=== PATIENT | female | born 1965 | race Hispanic/Latino ===

== ENCOUNTER 2018-11-01 20:00 | Emergency (ER) | payer OTHER, SELFPAY ==
[2018-11-01 20:53] LABS: Absolute Lymphocytes (CBC) 2.9 K/uL (0.7-4.9); Basophils % 0.7 % (0-1.3); Hematocrit 43.3 % (36.0-45.0); Lymphocytes % 34.1 % (15.3-44.8); MPV 9.6 fL (7.6-11.3); Monocytes % 5.2 % (3.3-12.3); RBC Red Blood Cell Count 5.08 M/uL (3.86-4.86)
[2018-11-01 21:04] LABS: ALT/SGPT 46 U/L (12-78); AST/SGOT 19 U/L (15-37); Albumin 4.2 g/dL (3.4-5.0); Alkaline Phosphatase 65 U/L (45-117); BUN Blood Urea Nitrogen 18 mg/dL (7-18); Bicarbonate 26 mmol/L (21-32); Bilirubin Direct < 0.1 mg/dL (0-0.2); Bilirubin Total 0.3 mg/dL (0.2-1.0); Glucose Level 185 mg/dL (74-106); Lipase 145 U/L (73-393); Potassium 3.7 mmol/L (3.5-5.1); Protein, Total 8.4 g/dL (6.4-8.2); Sodium Level 140 mmol/L (136-145)
[2018-11-01] MEDS ORDERED: DICYCLOMINE HCL 10 MG CAP ONE (22:49)
[2018-11-01] MEDS ORDERED: NA CHLORIDE 0.9% 1,000 ML ONE (22:50)
[2018-11-01] MEDS ORDERED: FENTANYL CITR 100 MCG/2 ML ONE (22:50)
--- NOTE | 2018-11-02 01:11 | ER ---
Nurse's Notes [facility] Name: Clarice Hall Age: 53 yrs Sex: Female : 1965 Arrival Date: 11/01/2018 Time: 20:05 Bed 25 Private MD: Diagnosis: Upper abdominal pain, unspecified Presentation: 11/01 20:06 Presenting complaint: Patient states: upper abd pain x 1.5 weeks and today began to aa1 radiate to her back. States when she bends over it makes the pain worse and she also had an episode of blurry vision early today but has since resolved. Transition of care: patient was not received from another setting of care. Onset of symptoms was October 22, 2018. Risk Assessment: Do you want to hurt yourself or someone else? Patient reports no desire to harm self or others. Initial Sepsis Screen: Does the patient meet any 2 criteria? No. Patient's initial sepsis screen is negative. Does the patient have a suspected source of infection? No. Patient's initial sepsis screen is negative. Care prior to arrival: None. 20:06 Method Of Arrival: Ambulatory aa1 20:06 Acuity: KASIA 3 aa1 Triage Assessment: 20:08 General: Appears in no apparent distress. comfortable, Behavior is calm, cooperative, aa1 appropriate for age. 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 - Social history:: Smoking status: Patient/guardian denies using tobacco. - Ebola Screening: : Patient denies exposure to infectious person Patient denies travel to an Ebola-affected area in the 21 days before illness onset. Screenin:48 Abuse screen: Denies threats or abuse. Denies injuries from another. Nutritional aj1 screening: No deficits noted. Tuberculosis screening: No symptoms or risk factors identified. Assessment: 20:48 General: Appears in no apparent distress. comfortable, Behavior is calm, cooperative, aj1 appropriate for age. Pain: Complains of pain in epigastric area and left upper quadrant. Pain: Pain radiates to left trapezius and right trapezius. Neuro: Neuro: Level of Consciousness is awake, alert, obeys commands, Oriented to person, place, time, situation. Cardiovascular: Patient's skin is warm and dry. Respiratory: Airway is patent Respiratory effort is even, unlabored, Respiratory pattern is regular, symmetrical. GI: Abdomen is non-distended, Bowel sounds present X 4 quads. Abd is soft X 4 quads Abdomen is tender to palpation in left upper quadrant Reports nausea, Patient currently denies diarrhea, vomiting. : No signs and/or symptoms were reported regarding the genitourinary system. EENT: No signs and/or symptoms were reported regarding the EENT system. Derm: No signs and/or symptoms reported regarding the dermatologic system. Skin is pink, warm \T\ dry. normal. Musculoskeletal: No signs and/or symptoms reported regarding the musculoskeletal system. Circulation, motion, and sensation intact. 21:38 Reassessment: Patient appears in no apparent distress at this time. No changes from aj1 previously documented assessment. Patient and/or family updated on plan of care and expected duration. Pain level reassessed. Patient is alert, oriented x 3, equal unlabored respirations, skin warm/dry/pink. 22:47 Reassessment: Patient appears in no apparent distress at this time. Patient and/or aa1 family updated on plan of care and expected duration. Pain level reassessed. Patient is alert, oriented x 3, equal unlabored respirations, skin warm/dry/pink. Pt taken to u/s and x-ray at this time. 11/02 00:25 Reassessment: Patient appears in no apparent distress at this time. Patient and/or aa1 family updated on plan of care and expected duration. Pain level reassessed. Patient is alert, oriented x 3, equal unlabored respirations, skin warm/dry/pink. Awaiting provider reassessment. 01:38 Reassessment: Patient appears in no apparent distress at this time. Patient is alert, aa1 oriented x 3, equal unlabored respirations, skin warm/dry/pink. Discussed d/c \T\ f/u instructions with pt; denies questions or concerns at this time Patient denies pain at this time. Patient states feeling better. Vital Signs: 11/01 20:08 BP 160 / 88; Pulse 76; Resp 18; Temp 97.9; Pulse Ox 100% on R/A; Weight 68.49 kg (R); aa1 Height 5 ft. 1 in. (154.94 cm); Pain 8/10; 21:40 BP 120 / 67; Pulse 54; Resp 18; Pulse Ox 97% on R/A; aj1 22:45 BP 116 / 70; Pulse 64; Resp 18; Pulse Ox 98% on R/A; aa1 23:30 BP 136 / 76; Pulse 60; Resp 18; Temp 98.1; Pulse Ox 97% on R/A; Pain 4/10; aa1 11/02 00:25 BP 129 / 71; Pulse 59; Resp 16; Pulse Ox 99% on R/A; aa1 01:38 BP 116 / 53; Pulse 64; Resp 16; Temp 98.0; Pulse Ox 99% on R/A; Pain 0/10; aa1 11/01 20:08 Body Mass Index 28.53 (68.49 kg, 154.94 cm) aa1 ED Course: 11/01 20:05 Patient arrived in ED. es 20:07 Triage completed. aa1 20:08 Arm band placed on left wrist. aa1 20:11 Dariel Wilson MD is Attending Physician. kdr 20:12 Faith Powell, ANTONIA is Primary Nurse. aj1 20:48 Patient has correct armband on for positive identification. Bed in low position. Call aj1 light in reach. Side rails up X 1. Pulse ox on. NIBP on. 20:48 No provider procedures requiring assistance completed. Inserted saline lock: 22 gauge aj1 in left forearm, using aseptic technique. Blood collected. 21:48 Yumiko Drew FNP-C is PHCP. snw 22:51 US Abdomen Limited In Process Unspecified. EDMS 22:56 Ultrasound completed. Patient moved to radiology via wheelchair. hr 23:01 Chest Pa And Lat (2 Views) XRAY In Process Unspecified. EDMS 11/02 01:38 IV discontinued, intact, bleeding controlled, No redness/swelling at site. Pressure aa1 dressing applied. Administered Medications: 11/01 22:40 Drug: Bentyl 20 mg Route: PO; aa1 11/02 00:30 Follow up: Response: No adverse reaction; Pain is decreased 11/01 22:40 Drug: fentaNYL (PF) 25 mcg Route: IVP; Site: left forearm; 11/02 00:30 Follow up: Response: No adverse reaction; Pain is decreased 11/01 22:40 Drug: NS 0.9% 1000 ml Route: IV; Rate: 1 bolus; Site: left forearm; 11/02 01:47 Follow up: IV Status: Completed infusion; IV Intake: 1000ml aa Intake: 01:47 IV: 1000ml; Total: 1000ml. aa1 Outcome: 01:09 Discharge ordered by . snkeanu 01:38 Discharged to home ambulatory. aa1 01:38 Condition: good 01:38 Discharge instructions given to patient, Instructed on discharge instructions, follow up and referral plans. medication usage, Demonstrated understanding of instructions, follow-up care, medications, Prescriptions given X 2. 01:46 Patient left the ED. aa1 Signatures: Dispatcher [employer] Faith Magallon RN RN aj1 Karmen Sanchez RN RN aa1 Dariel Wilson MD MD kdr Therrien, Shelly, GRILL PREP COOK-C GRILL PREP COOK-Csnw Kate Huffman Haley hr
--- NOTE | 2018-11-02 01:11 | EDPHYS ---
Physician Documentation [facility] Name: Clarice Hall Age: 53 yrs Sex: Female : 1965 Arrival Date: 11/01/2018 Time: 20:05 Bed 25 Private MD: ED Physician Dariel Wilson HPI: 11/01 23:08 This 53 yrs old Female presents to ER via Ambulatory with complaints of snw Abdominal Pain. 23:08 The patient presents with abdominal pain in the epigastric area, in the upper abdomen. snw Onset: The symptoms/episode began/occurred suddenly, 1.5 week(s) ago, and became persistent. The symptoms do not radiate. Associated signs and symptoms: Pertinent positives: nausea. The symptoms are described as crampy, vague. Severity of pain: At its worst the pain was moderate severe. It is unknown whether or not the patient has had similar symptoms in the past. The patient has not recently seen a physician. 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 - Social history:: Smoking status: Patient/guardian denies using tobacco. - Ebola Screening: : Patient denies exposure to infectious person Patient denies travel to an Ebola-affected area in the 21 days before illness onset. ROS: 23:07 Constitutional: Negative for fever, chills, and weight loss, Eyes: Negative for injury, snw pain, redness, and discharge, ENT: Negative for injury, pain, and discharge, Neck: Negative for injury, pain, and swelling, Cardiovascular: Negative for chest pain, palpitations, and edema, Respiratory: Negative for shortness of breath, cough, wheezing, and pleuritic chest pain, Back: Negative for injury and pain, : Negative for injury, bleeding, discharge, and swelling, MS/Extremity: Negative for injury and deformity, Skin: Negative for injury, rash, and discoloration, Neuro: Negative for headache, weakness, numbness, tingling, and seizure. 23:07 Abdomen/GI: Positive for abdominal pain, nausea, abdominal cramps, abdominal distension, of the epigastric area, right upper quadrant and left upper quadrant. Exam: 23:07 Constitutional: This is a well developed, well nourished patient who is awake, alert, snw and in no acute distress. Head/Face: Normocephalic, atraumatic. Eyes: Pupils equal round and reactive to light, extra-ocular motions intact. Lids and lashes normal. Conjunctiva and sclera are non-icteric and not injected. Cornea within normal limits. Periorbital areas with no swelling, redness, or edema. ENT: Nares patent. No nasal discharge, no septal abnormalities noted. Tympanic membranes are normal and external auditory canals are clear. Oropharynx with no redness, swelling, or masses, exudates, or evidence of obstruction, uvula midline. Mucous membranes moist. Neck: Trachea midline, no thyromegaly or masses palpated, and no cervical lymphadenopathy. Supple, full range of motion without nuchal rigidity, or vertebral point tenderness. No Meningismus. Chest/axilla: Normal chest wall appearance and motion. Nontender with no deformity. No lesions are appreciated. Cardiovascular: Regular rate and rhythm with a normal S1 and S2. No gallops, murmurs, or rubs. Normal PMI, no JVD. No pulse deficits. Respiratory: Lungs have equal breath sounds bilaterally, clear to auscultation and percussion. No rales, rhonchi or wheezes noted. No increased work of breathing, no retractions or nasal flaring. Back: No spinal tenderness. No costovertebral tenderness. Full range of motion. Skin: Warm, dry with normal turgor. Normal color with no rashes, no lesions, and no evidence of cellulitis. MS/ Extremity: Pulses equal, no cyanosis. Neurovascular intact. Full, normal range of motion. Neuro: Awake and alert, GCS 15, oriented to person, place, time, and situation. Cranial nerves II-XII grossly intact. Motor strength 5/5 in all extremities. Sensory grossly intact. Cerebellar exam normal. Normal gait. Psych: Awake, alert, with orientation to person, place and time. Behavior, mood, and affect are within normal limits. 23:07 Abdomen/GI: Inspection: abdomen appears normal, Bowel sounds: normal, Palpation: moderate abdominal tenderness, in the epigastric area and left upper quadrant. Vital Signs: 20:08 BP 160 / 88; Pulse 76; Resp 18; Temp 97.9; Pulse Ox 100% on R/A; Weight 68.49 kg (R); aa1 Height 5 ft. 1 in. (154.94 cm); Pain 8/10; 21:40 BP 120 / 67; Pulse 54; Resp 18; Pulse Ox 97% on R/A; aj1 22:45 BP 116 / 70; Pulse 64; Resp 18; Pulse Ox 98% on R/A; aa1 23:30 BP 136 / 76; Pulse 60; Resp 18; Temp 98.1; Pulse Ox 97% on R/A; Pain 4/10; aa1 11/02 00:25 BP 129 / 71; Pulse 59; Resp 16; Pulse Ox 99% on R/A; aa1 01:38 BP 116 / 53; Pulse 64; Resp 16; Temp 98.0; Pulse Ox 99% on R/A; Pain 0/10; aa1 11/01 20:08 Body Mass Index 28.53 (68.49 kg, 154.94 cm) aa1 MDM: 11/01 21:48 Patient medically screened. snw 11/02 01:11 Data reviewed: vital signs, nurses notes. Data interpreted: Pulse oximetry: on room air snw is 99 %. Interpretation: normal. Counseling: I had a detailed discussion with the patient and/or guardian regarding: the historical points, exam findings, and any diagnostic results supporting the discharge/admit diagnosis, lab results, radiology results, the need for outpatient follow up, to return to the emergency department if symptoms worsen or persist or if there are any questions or concerns that arise at home. Special discussion: Based on the patient's Hx, exam, and Dx evaluation, there is no indication for emergent surgery or inpatient Tx. It is understood by the patient/guardian that if the Sx's persist or worsen they need to return immediately for re-evaluation. Based on the history and exam findings, there is no indication for further emergent testing or inpatient evaluation. I discussed with the patient/guardian the need to see the programs manager for further evaluation of the symptoms. I discussed with the patient/guardian the need to see the primary care provider for further evaluation of the symptoms. 11/01 20:11 Order name: Basic Metabolic Panel; Complete Time: 21:49 kdr 11/01 20:11 Order name: CBC with Diff; Complete Time: 21:49 kdr 11/01 20:11 Order name: Creatinine for Radiology; Complete Time: 21:49 kdr 11/01 20:11 Order name: Hepatic Function; Complete Time: 21:49 kdr 11/01 20:11 Order name: Lipase; Complete Time: 21:49 kdr 11/01 21:50 Order name: US Abdomen Limited snw 11/01 20:11 Order name: IV Saline Lock; Complete Time: 20:42 kdr 11/01 20:11 Order name: Labs collected and sent; Complete Time: 20:42 kdr 11/01 22:06 Order name: Chest Pa And Lat (2 Views) XRAY snw 11/01 23:49 Order name: PO challenge; Complete Time: 00:30 snw Administered Medications: 11/01 22:40 Drug: Bentyl 20 mg Route: PO; aa1 11/02 00:30 Follow up: Response: No adverse reaction; Pain is decreased aa 11/01 22:40 Drug: fentaNYL (PF) 25 mcg Route: IVP; Site: left forearm; aa1 11/02 00:30 Follow up: Response: No adverse reaction; Pain is decreased [facility] 11/01 22:40 Drug: NS 0.9% 1000 ml Route: IV; Rate: 1 bolus; Site: left forearm; aa1 11/02 01:47 Follow up: IV Status: Completed infusion; IV Intake: 1000ml aa Disposition: 07:01 Co-signature as Attending Physician, Dariel Wilson MD I agree with the assessment and [facility] plan of care. Disposition: 11/02/18 01:09 Discharged to Home. Impression: Upper abdominal pain, unspecified. - Condition is Stable. - Discharge Instructions: Abdominal Pain, Adult, Fat and Cholesterol Restricted Diet. - Prescriptions for Bentyl 20 mg Oral Tablet - take 1 tablet by ORAL route every 6 hours As needed; 20 tablet. Zofran 4 mg Oral Tablet - take 1 tablet by ORAL route every 12 hours As needed; 6 tablet. - Work release form, Medication Reconciliation Form, Thank You Letter, Antibiotic Education, Prescription Opioid Use form. - Follow up: Private Physician; When: 1 - 2 days; Reason: Recheck today's complaints, Continuance of care, Re-evaluation by your physician. Follow up: Emergency Department; When: As needed; Reason: Worsening of condition. Signatures: Dispatcher [employer] Karmen Bishop RN RN aa1 Dariel Wilson MD MD kdr Yumiko Drew, ART MUSEUM DOCENT-C ART MUSEUM DOCENT-Csnw Corrections: (The following items were deleted from the chart) 01:46 01:09 11/02/2018 01:09 Discharged to Home. Impression: Upper abdominal pain, aa1 unspecified. Condition is Stable. Forms are Medication Reconciliation Form, Thank You Letter, Antibiotic Education, Prescription Opioid Use. Follow up: Private Physician; When: 1 - 2 days; Reason: Recheck today's complaints, Continuance of care, Re-evaluation by your physician. Follow up: Emergency Department; When: As needed; Reason: Worsening of condition. snw
--- NOTE | 2018-11-02 09:04 | RAD REPORT ---
EXAM DESCRIPTION: US - Abdomen Exam Limited - 11/01/2018 10:51 pm CLINICAL HISTORY: Abdominal pain COMPARISON: None. FINDINGS: No gallstones, sludge or other abnormalities within the gallbladder lumen. There is no wal l thickening or pericholecystic fluid. Gallbladder is partially contracted. No common duct stone or biliary tree dilatation identified. IMPRESSION: No gallbladder or biliary tree abnormality.
--- NOTE | 2018-11-02 09:05 | RAD REPORT ---
EXAM DESCRIPTION: RAD - Chest Pa And Lat (2 Views) - 11/01/2018 11:02 pm CLINICAL HISTORY: Chest pain, upper abdomen pain COMPARISON: None. TECHNIQUE: PA and lateral views of the chest were obtained. FINDINGS: The lungs are clear. Heart size is normal and central vasculature is within normal limit s. No pleural effusion or pneumothorax seen. No acute bony finding noted. No aortic abnormality. IMPRESSION: No acute cardiopulmonary process.
== END 2018-11-02 01:46 | disposition home or self-care (01) ==
LOC: ER 20:00
DX: R10.13 Epigastric pain (principal); I10 Essential (primary) hypertension; E11.9 Type 2 diabetes mellitus without complications; Z79.84 Long term (current) use of oral hypoglycemic drugs
CPT/HCPCS: 36415; 71046; 76705; 80048; 80076; 83690; 85025; 96361; 96374; 99284; J3010; J7030

== ENCOUNTER 2020-06-14 10:29 | Emergency (ER) | payer OTHER, SELFPAY ==
--- OUTSIDE RECORDS SUMMARY | 2020-06-14 10:44 | XMS REPORT | Encounter Summary ---
:1965 Author Care Team Providers Name Role Phone Seun GONCALVES Primary Care Provider [phone] Reason for Visit COVID-19 symptoms Instructions 1. Suspected COVID-19 rapid SARS CoV + SARS CoV 2 Ag, QL IA, respiratory specimen 2. COVID-19 Discussion Note: None recorded.Patient educational handouts: No information available. Plan of Care Reminders Provider Appointments None recorded. Lab Rapid SARS CoV In -Office Order + SARS CoV 2 Ag, QL IA, 06/06/2020 Respiratory Specimen Referral None recorded. Procedures None recorded. Surgeries None recorded. Imaging None recorded. Medications Name Start Date glipizide 10 mg tablet lisinopril 20 mg tablet metformin 1,000 mg tablet Medications Administered None recorded. Vitals Height Weight BMI 61 in 152 lbs 16 oz 28.9 kg/m2 Results Lab Results None recorded. Allergies Code Code System Name Reaction Severity Status Onset NKDA Problems Name Status Onset Date Source Diabetes Mellitus Active 11/04/2018 Hypercholesterolemia Active 11/04/2018 Hypertensive Disorder Active 11/04/2018 Procedures Date Name Performed by Esophagogastroduodenoscopy (Surg) Inform ation not available Upper GI Endoscopy Information not avai lable Vaccine List None recorded. Social History Tobacco Smoking Status Never Smoker Past Encounters Encounter Date Diagnosis Provider 06/06/2020 Suspected COVID-19; Covid-19 JONAS GrijalvaC: [address] [place] [id number], Ph. History of Present Illness COVID-19 Symptoms September 2019 Reported By: Patient Note: This is a telehealth visit using real-time audio-video communication. Patient is located at {{home*|other location}} and I am located at {{clinic*|home|other location}}. The participants are myself, the patient, and {{nurse*|medical assitant}}. Patient's consent is on file in the medical records.<div>
</div><div>Pt c/o cough, dizziness, sore throat, vomiting x 2 days ago. Daughter and granddaughter have both tested positive for COVID, they stayed with her all weekend.& lt;/div><div>
</div><div>Pt reports daughter tested this am. </div><div>pt had grandbaby this weekend.</div><div>symptoms started - 2 days ago. dizzy, vomiting, ear pain. no fever. </div><div>reports myalgia. no headache, reports sore throat. </div><div>OTC - no </div> Review of [facility] General Adul t ROS Reported By: Patient ENMT: Ears: no ear pain. Nose: no nose/sinus problems. Mouth/Throat: throat pain Cardiovascular: Cardiovascular: no chest linsey n Respiratory: Respiratory: no wheezing, no shortness of breath, cough Gastrointestinal: Gastrointestinal: no vomitin g, no diarrhea Musculoskeletal: Musculoskeletal: muscle ache s Neurologic: Neurologic: frequent or elizabeth re headaches Allergic/Immunologic: Allergy/Immunologic: no runn y nose, no sinus pressure Physical Exam COVID-19 Exam Reported By: Patient General Appearance: General Appearance normal ap pearance, no acute distress"
--- OUTSIDE RECORDS SUMMARY | 2020-06-14 10:44 | XMS REPORT | Continuity of Care Document ---
:1965 Author Organization [facility] t Address [address] [place] [address] Care Team Providers Name Role Phone Unavailable Unavailable Unavailable Problems Condition Condition Condition Status Onset Resolution Last Treating Co mments Source Name Details Category Date Date Treatment Clinician Date Diabetes Diabetes Problem Active [place] mellitus Mellitus 11-04 da 00:00: [facility] 00 Group Hyperchole Hyperchole Problem Active [facility] sterolemia sterolemia 11-04 da 00:00: Medical 00 Group Hypertensi Hypertensi Problem Active [facility] ve ve 11-04 da disorder Disorder 00:00: Medica l 00 Group Type 2 Type 2 Problem Active [place] diabetes Diabetes 01-26 da mellitus Mellitus 00:00: [facility] without without 00 al complicati Complicati He alth on on Outreac h Program Hyperlipid Hyperlipid Problem Active [facility] emia emia 918 da 00:00: [facility] Essential Essential Problem Active [facility] hypertensi Hypertensi 918 da on on 00:00: [facility] Obesity Obesity Problem Active [place] [facility] Allergies, Adverse Reactions, Alerts This patient has no known allergies or adverse reactions. Social History Smoking Status Start Date Stop Date Source Never Smoker [facility] Medications Ordered Filled Start Stop Current Ordering Indication Dosage Frequency Signature Comments Components Source Medication Medication Date Date Medication? Clinician (SIG) Name Name atorvastati atorvastati No atorvastat [place] 20 mg n 20 mg in 20 mg da tablet Take tablet Take tablet [facility] 1 tablet at 1 tablet at Take 1 al bedtime for bedtime for tablet at Health elevated elevated bedtime Outr eac cholesterol cholesterol for h elevated Program cholestero l Glucotrol Glucotrol No Glucotrol [place] 10 mg 10 mg 10 mg da tablet Take tablet Take tablet [facility] 1 tablet 1 tablet Take 1 al twice a day twice a day tablet Health with a meal with a meal twice a Outreac for for day with a h diabetes diabetes meal for Pro gram diabetes Jardiance Jardiance No Jardiance [place] 10 mg 10 mg 10 mg da tablet Take tablet Take tablet [facility] 1 tablet 1 tablet Take 1 al every every tablet Health morning for morning for every Outreac diabetes diabetes morning h for Program diabetes lisinopril lisinopril No lisinopril [place] 20 mg 20 mg 20 mg da tablet Take tablet Take tablet [facility] 1 tablet in 1 tablet in Take 1 al the morning the morning tablet in Health for blood for blood the Outre ac pressure pressure morning h and renal and renal for blood Program protection protection pressure and renal protection Macrobid Macrobid No 1capsul Q12H Macrobid [place] 100 mg 100 mg e(s) 100 mg da capsule capsule capsule [facility] Take 1 Take 1 Take 1 al capsule capsule capsule Health every 12 every 12 every 12 Out reac hours by hours by hours by h oral route oral route oral route Program for 7 days. for 7 days. for 7 days. metformin metformin No metformin [place] 1,000 mg 1,000 mg 1,000 mg da tablet Take tablet Take tablet [facility] 1 tablet 1 tablet Take 1 al twice a day twice a day tablet Health for for twice a Outreac diabetes diabetes day for h diabetes Program glipizide glipizide No glipizide [place] 10 mg 10 mg 10 mg da tablet tablet tablet Medical Group lisinopril lisinopril No lisinopril [place] 20 mg 20 mg 20 mg da tablet tablet tablet Medical [facility] metformin metformin No metformin [facility] 1,000 mg 1,000 mg 1,000 mg da tablet tablet tablet [facility] Vital Signs Vital Name Observation Time Observation Value Comments Source Height 2020-06-06 00:00:00 61 [in_i] [facility] BMI (Body Mass 2020-06-06 00:00:00 28.9 kg/m2 [facility]) Group Body Weight 2020-06-06 00:00:00 2448 [oz_av] [facility] BP Diastolic 2019-03-21 00:00:00 85 mm[Hg] [facility] Height 2019-03-21 00:00:00 61 [in_i] [facility] BMI (Body Mass 2019-03-21 00:00:00 27.6 kg/m2 [facility] BP Systolic 2019-03-21 00:00:00 130 mm[Hg] [facility] Body Weight 2019-03-21 00:00:00 146 [lb_av] [facility] BP Diastolic 2019-03-10 00:00:00 96 mm[Hg] [facility] [facility] Height 2019-03-10 00:00:00 61 [in_i] [place] [facility] BMI (Body Mass 2019-03-10 00:00:00 28.3 kg/m2 [facility] BP Systolic 2019-03-10 00:00:00 126 mm[Hg] [place] [facility] Body Weight 2019-03-10 00:00:00 149.6 [lb_av] [place] BP Diastolic 2019-01-20 00:00:00 74 mm[Hg] [facility] Height 2019-01-20 00:00:00 61 [in_i] [facility] BMI (Body Mass 2019-01-20 00:00:00 28.9 kg/m2 [facility] BP Systolic 2019-01-20 00:00:00 136 mm[Hg] [facility] Body Weight 2019-01-20 00:00:00 153 [lb_av] [facility] BP Diastolic 2018-12-16 00:00:00 76 mm[Hg] [facility] Height 2018-12-16 00:00:00 61 [in_i] [facility] BMI (Body Mass 2018-12-16 00:00:00 28.9 kg/m2 [facility] BP Systolic 2018-12-16 00:00:00 138 mm[Hg] [facility] Body Weight 2018-12-16 00:00:00 153 [facility] BP Diastolic 2018-11-04 00:00:00 83 mm[Hg] [facility] Height 2018-11-04 00:00:00 61 [in_i] [facility] BMI (Body Mass 2018-11-04 00:00:00 28.9 kg/m2 [facility] Medical Index) Group BP Systolic 2018-11-04 00:00:00 144 mm[Hg] [facility] Body Weight 2018-11-04 00:00:00 153 [lb_av] [facility] Procedures Procedure Date / Time Performing Source Performed Clinician MAMMO, screening, digital, 2019-03-21 [place] bilateral 00:00:00 [facility] NM, hepatobiliary scan, w/ CCK 2018-11-04 [facility] [place] 00:00:00 [facility] Tubal Ligation [facility] Upper GI Endoscopy [facility] Esophagogastroduodenoscopy (Surg) [facility] Plan of Care Planned Activity Planned Date Details Comments Source Diagnostic Test 2020-06-06 rapid SARS CoV + SARS [facility] Pending 00:00:00 CoV 2 Ag, QL IA, Group respiratory specimen [code = rapid SARS CoV + SARS CoV 2 Ag, QL IA, respiratory specimen] Diagnostic Test 2019-03-21 urinalysis, dipstick [facility] mode Pending 00:00:00 [code = urinalysis, [facility] dipstick] [facility] Diagnostic Test 2019-03-21 CMP, serum or plasma [facility] Pending 00:00:00 [code = CMP, serum or [facility] plasma] [facility] Diagnostic Test 2019-03-21 CBC w/ auto diff [place] [facility] Pending 00:00:00 [code = CBC w/ auto [facility] diff] [facility] Diagnostic Test 2019-03-21 TSH + free T4, serum [facility] Pending 00:00:00 [code = TSH + free [facility] T4, serum] [facility] Diagnostic Test 2019-03-21 lipid panel, serum [facility] Pending 00:00:00 [code = lipid panel, [facility] serum] [facility] Diagnostic Test 2019-03-21 pap, IG + CT/NG/TV [facility] Pending 00:00:00 [code = pap, IG + [facility] CT/NG/TV] [facility] m Diagnostic Test 2019-03-21 HIV 1+2 AB + HIV 1 [facility] Pending 00:00:00 p24 Ag, qualitative [facility] immunoassay, serum [facility] [code = HIV 1+2 AB + HIV 1 p24 Ag, qualitative immunoassay, serum] Diagnostic Test 2019-03-21 RPR (rapid plasma [place] Pending 00:00:00 reagin), serum [code [facility] = RPR (rapid plasma [facility] reagin), serum] Diagnostic Test 2019-03-21 HBsAg (hepatitis B [facility] Pending 00:00:00 surface Ag), EIA, [facility] serum [code = HBsAg [facility] (hepatitis B surface Ag), EIA, serum] Diagnostic Test 2019-03-21 culture, urine [code [facility] Pending 00:00:00 = culture, urine] [facility] Encounters Start End Encounter Admission Attending Care Care Encounter Source Date/Time Date/Time Type Type Clinicians Facility Department ID 2020-06-06 2020-06-06 Maria Teresa [facility] [place] - [id number] [facility] 00:00:00 00:00:00 Discovery singh Trevizo PA-C: [address] [place], [place] [address]a [facility] [address] [place] [address] , Ph. 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 2019-03-10 2019-03-10 [place] - [id number] 1 [place] 00:00:00 00:00:00 IVANNA Mitchell: Alberto joseph 1700 [facility] [place], [facility] 3, [address] [address] Progr am , Ph. 2019-01-20 2019-01-20 Jared [facility] [place] - [id number] M [facility] 00:00:00 00:00:00 Sebastian Lovell MD: [facility] [address], [place] [address] , Ph. [phone] 2018-12-16 2018-12-16 Jared [facility] [place] - [id number] M [facility] 00:00:00 00:00:00 Sebastian Lovell MD: [facility] [address], [place] [address] , Ph. [phone] 2018-11-04 2018-11-04 Gustavo [facility] [place] - [id number] M [facility] 00:00:00 00:00:00 Kevin DO: Discovery olivier joseph [address] [place] [address] - [address], [facility] [address] , Ph. [phone] Results Test Description Test Time Test Comments Results Result Comments Source Surgical pathology study 2019-01-14 07:50:00 Test Item Value Reference Range Interpretation Comme nts Surgical pathology study (test code = 37735-9) see separate patholo gy report. [facility]
[2020-06-14] MEDS ORDERED: NA CHLORIDE 0.9% 1,000 ML ONE (12:48)
[2020-06-14] MEDS ORDERED: METHYLPREDNISOLONE 125 MG INJ ONE (12:48)
[2020-06-14 13:02] LABS: Potassium 4.1 mmol/L (3.5-5.1)
[2020-06-14 13:11] LABS: Absolute Lymphocytes (CBC) 1.4 K/uL (0.7-4.9); Basophils % 0.3 % (0-1.3); Hematocrit 41.6 % (36.0-45.0); Lymphocytes % 29.2 % (15.3-44.8); RBC Red Blood Cell Count 5.13 M/uL (3.86-4.86)
--- NOTE | 2020-06-14 13:20 | RAD REPORT ---
EXAM DESCRIPTION: RAD - Chest Single View - 06/14/2020 1:04 pm CLINICAL HISTORY: covid. sob Chest pain. COMPARISON: Chest Pa And Lat (2 Views) dated 11/01/2018 FINDINGS: Portable technique limits examination quality. Subtle interstitial opacities are present in the right mid lung and left upper lobe compatible with v iral infection/ bronchitis. The heart is normal in size. No displaced fractures.
[2020-06-14] MEDS ORDERED: INSULIN -REGULAR HUMAN 50 UNIT/0.5 ML ML ONE ×2 (14:08→14:25)
--- NOTE | 2020-06-14 14:09 | ER ---
Nurse's Notes [facility] Name: Clarice Hall Age: 54 yrs Sex: Female : 1965 Arrival Date: 06/14/2020 Time: 10:31 Bed 26 Private MD: Diagnosis: SARS-associated coronavirus as the cause of diseases classified elsewhere;Viral pneumonia, unspecified Presentation: 06/14 10:47 Chief complaint: Patient states: Covid positive last week in [place]. N/V/D for 2 sv days. Feels dizzy and weak. Still has cough, no known high fever. Coronavirus screen: Client denies travel out of the [place] in the last 14 days. congestion, cough unrelated to allergies, diarrhea, fatigue, nausea, vomiting. Client presents with at least one sign or symptom that may indicate coronavirus-19. Standard/surgical mask placed on the client. Client reports previous positive COVID test result. Ebola Screen: Patient denies travel to an Ebola-affected area in the 21 days before illness onset. Initial Sepsis Screen: Does the patient meet any 2 criteria? HR > 90 bpm. No. Patient's initial sepsis screen is negative. Does the patient have a suspected source of infection? Yes: Productive cough/pneumonia. Risk Assessment: Do you want to hurt yourself or someone else? Patient reports no desire to harm self or others. Onset of symptoms was June 01, 2020. 10:47 Method Of Arrival: Ambulatory sv 10:47 Acuity: KASIA 3 sv Historical: - Allergies: 10:47 No Known Allergies; sv - PMHx: 10:47 Diabetes - NIDDM; Hypertension; sv - PSHx: 10:47 ; sv - Immunization history:: Flu vaccine is not up to date. - Social history:: Smoking status: Patient denies any tobacco usage or history of. Screenin:15 Abuse screen: Denies threats or abuse. Denies injuries from another. Nutritional ca1 screening: No deficits noted. Tuberculosis screening: No symptoms or risk factors identified. Fall Risk None identified. Assessment: 12:15 General: Appears in no apparent distress. comfortable, Behavior is calm, cooperative, ca1 appropriate for age. Pain: Denies pain. Neuro: Level of Consciousness is awake, alert, obeys commands, Oriented to person, place, time, situation. Neuro: Reports dizziness. Cardiovascular: Heart tones S1 S2 present Capillary refill < 3 seconds Patient's skin is warm and dry. Respiratory: Reports cough that is since a week ago Airway is patent Respiratory effort is even, unlabored, Respiratory pattern is regular, symmetrical, Breath sounds are clear bilaterally. GI: Abdomen is round non-distended, Bowel sounds present X 4 quads. Abd is soft and non tender X 4 quads. Reports diarrhea, nausea, vomiting. : No signs and/or symptoms were reported regarding the genitourinary system. EENT: No signs and/or symptoms were reported regarding the EENT system. Derm: Skin is intact, is healthy with good turgor, Skin is pink, warm \T\ dry. Musculoskeletal: Circulation, motion, and sensation intact. Capillary refill < 3 seconds. 13:14 Reassessment: Patient appears in no apparent distress at this time. Patient and/or ca1 family updated on plan of care and expected duration. Pain level reassessed. Patient is alert, oriented x 3, equal unlabored respirations, skin warm/dry/pink. 13:53 Reassessment: Patient appears in no apparent distress at this time. Patient is alert, ca1 oriented x 3, equal unlabored respirations, skin warm/dry/pink. BGL checked at 278. Notified provider. VO to give just IV insulin for now. 14:15 Reassessment: VO to go ahead and give Insulin SubQ. ca1 14:33 Reassessment: Patient appears in no apparent distress at this time. Patient is alert, ca1 oriented x 3, equal unlabored respirations, skin warm/dry/pink. Vital Signs: 10:47 BP 158 / 98; Pulse 94; Resp 18; Temp 99.1; Pulse Ox 95% on R/A; Weight 66.22 kg; Height sv 5 ft. 1 in. (154.94 cm); Pain 7/10; 12:15 BP 136 / 81; Pulse 81; Resp 16 S; Pulse Ox 96% on R/A; ca1 13:14 BP 134 / 80; Pulse 75; Resp 16 S; Pulse Ox 97% on R/A; ca1 13:53 BP 129 / 75; Pulse 80; Resp 16 S; Pulse Ox 95% on R/A; ca1 10:47 Body Mass Index 27.59 (66.22 kg, 154.94 cm) sv ED Course: 10:31 Patient arrived in ED. as 10:46 Arm band placed on. sv 10:49 Triage completed. sv 12:03 Shravan Robbins PA is PHCP. jr8 12:03 Dariel Wilson MD is Attending Physician. jr8 12:14 Sigrid Garcia, ANTONIA is Primary Nurse. ca1 12:15 Patient has correct armband on for positive identification. Placed in gown. Bed in low ca1 position. Call light in reach. Side rails up X2. Pulse ox on. NIBP on. Warm blanket given. 12:38 Initial lab(s) drawn, by me, sent to lab. Inserted saline lock: 20 gauge in right hand, jp3 using aseptic technique. Blood collected. Patient maintains SpO2 saturation greater than 95% on room air. 13:03 XRAY Chest (1 view) In Process Unspecified. EDMS 14:18 No provider procedures requiring assistance completed. ca1 14:34 IV discontinued, intact, bleeding controlled, No redness/swelling at site. Pressure ca1 dressing applied. Administered Medications: 12:43 Drug: NS 0.9% 1000 ml Route: IV; Rate: 1000 ml; Site: right hand; vg1 13:50 Follow up: Response: No adverse reaction; IV Status: Completed infusion; IV Intake: ca1 1000ml 12:43 Drug: SOLU-Medrol 125 mg Route: IVP; Site: right hand; vg1 13:30 Follow up: Response: No adverse reaction; Marked relief of symptoms ca1 13:54 Drug: Insulin Regular Human 5 units {Co-Signature: ll1 (Mariel Ramos RN).} Route: IVP; ca1 Site: right hand; 14:17 Follow up: Response: No adverse reaction ca1 14:34 Follow up: Response: No adverse reaction; Blood sugar is lowered ca1 14:15 Drug: Insulin Regular Human 5 units {Co-Signature: ll1 (Mariel Ramos RN).} Route: ca1 Sub-Q; Site: left upper abdomen; 14:17 Follow up: Response: No adverse reaction ca1 14:34 Follow up: Response: Blood sugar is lowered ca1 Intake: 13:50 IV: 1000ml; Total: 1000ml. ca1 Outcome: 14:09 Discharge ordered by . jr8 14:34 Discharged to home ambulatory. ca1 14:34 Condition: stable 14:34 Discharge instructions given to patient, Instructed on discharge instructions, follow up and referral plans. medication usage, Demonstrated understanding of instructions, follow-up care, medications, Prescriptions given X 3. 14:34 Patient left the ED. ca1 Signatures: Dispatcher [employer] EDJudy Chow, RN RN Martha Massey Josh, PA PA jr8 Bear Preston jp3 Sigrid Garcia RN RN ca1 Robyn Munoz RN RN vg1 Mariel Ramos RN ll1 Corrections: (The following items were deleted from the chart) 12:20 12:15 BP 155 / 90; Pulse 81bpm; Resp 16bpm; Spontaneous; Pulse Ox 96% RA; ca1 ca1
--- NOTE | 2020-06-14 14:09 | EDPHYS ---
Physician Documentation [facility] Name: Clarice Hall Age: 54 yrs Sex: Female : 1965 Arrival Date: 06/14/2020 Time: 10:31 Bed 26 Private MD: ED Physician Dariel Wilson HPI: 06/14 12:32 This 54 yrs old Female presents to ER via Ambulatory with complaints of jr8 covid+, feels worse. 12:32 Patient stated that she was diagnosed with covid about 10 days ago. Has worsening of jr8 cough and now three days of n/v/d . Severity of symptoms: At their worst the symptoms were moderate in the emergency department the symptoms are unchanged. The patient has not experienced similar symptoms in the past. The patient has not recently seen a physician. Historical: - Allergies: 10:47 No Known Allergies; sv - PMHx: 10:47 Diabetes - NIDDM; Hypertension; sv - PSHx: 10:47 ; sv - Immunization history:: Flu vaccine is not up to date. - Social history:: Smoking status: Patient denies any tobacco usage or history of. ROS: 12:32 Eyes: Negative for injury, pain, redness, and discharge, ENT: Negative for injury, jr8 pain, and discharge, Neck: Negative for injury, pain, and swelling, Cardiovascular: Negative for chest pain, palpitations, and edema, Back: Negative for injury and pain, MS/Extremity: Negative for injury and deformity, Skin: Negative for injury, rash, and discoloration, Neuro: Negative for headache, weakness, numbness, tingling, and seizure. 12:32 Respiratory: Positive for cough, shortness of breath. 12:32 Abdomen/GI: Positive for nausea, vomiting, and diarrhea, Negative for abdominal pain, hematemesis, black/tarry stool, rectal pain, rectal bleeding, bowel incontinence, flatulence. Exam: 12:32 Eyes: Pupils equal round and reactive to light, extra-ocular motions intact. Lids and jr8 lashes normal. Conjunctiva and sclera are non-icteric and not injected. Cornea within normal limits. Periorbital areas with no swelling, redness, or edema. ENT: Nares patent. No nasal discharge, no septal abnormalities noted. Tympanic membranes are normal and external auditory canals are clear. Oropharynx with no redness, swelling, or masses, exudates, or evidence of obstruction, uvula midline. Mucous membranes moist. Neck: Trachea midline, no thyromegaly or masses palpated, and no cervical lymphadenopathy. Supple, full range of motion without nuchal rigidity, or vertebral point tenderness. No Meningismus. Cardiovascular: Regular rate and rhythm with a normal S1 and S2. No gallops, murmurs, or rubs. Normal PMI, no JVD. No pulse deficits. Respiratory: Lungs have equal breath sounds bilaterally, clear to auscultation and percussion. No rales, rhonchi or wheezes noted. No increased work of breathing, no retractions or nasal flaring. Abdomen/GI: Soft, non-tender, with normal bowel sounds. No distension or tympany. No guarding or rebound. No evidence of tenderness throughout. Back: No spinal tenderness. No costovertebral tenderness. Full range of motion. Skin: Warm, dry with normal turgor. Normal color with no rashes, no lesions, and no evidence of cellulitis. MS/ Extremity: Pulses equal, no cyanosis. Neurovascular intact. Full, normal range of motion. Neuro: Awake and alert, GCS 15, oriented to person, place, time, and situation. Cranial nerves II-XII grossly intact. Motor strength 5/5 in all extremities. Sensory grossly intact. Cerebellar exam normal. Normal gait. Vital Signs: 10:47 BP 158 / 98; Pulse 94; Resp 18; Temp 99.1; Pulse Ox 95% on R/A; Weight 66.22 kg; Height sv 5 ft. 1 in. (154.94 cm); Pain 7/10; 12:15 BP 136 / 81; Pulse 81; Resp 16 S; Pulse Ox 96% on R/A; ca1 13:14 BP 134 / 80; Pulse 75; Resp 16 S; Pulse Ox 97% on R/A; ca1 13:53 BP 129 / 75; Pulse 80; Resp 16 S; Pulse Ox 95% on R/A; ca1 10:47 Body Mass Index 27.59 (66.22 kg, 154.94 cm) sv MDM: 12:03 Patient medically screened. jr8 13:33 Data reviewed: vital signs, nurses notes, lab test result(s), radiologic studies, plain jr8 films. Data interpreted: Pulse oximetry: on room air is 97 %. Interpretation: normal. Counseling: I had a detailed discussion with the patient and/or guardian regarding: the historical points, exam findings, and any diagnostic results supporting the discharge/admit diagnosis, lab results, radiology results, the need for outpatient follow up, a family practitioner, to return to the emergency department if symptoms worsen or persist or if there are any questions or concerns that arise at home. 14:07 ED course: Discussed with patient that her glucose is still high for being on 1000mg jr8 BID metformin. Recommend pcp f/u for addition of another diabetic medicine on top of her metformin. Will still need to be put on steroids and will also start on ivermectin . 06/14 12:27 Order name: CBC with Diff; Complete Time: 13:19 jr8 06/14 12:27 Order name: Basic Metabolic Panel; Complete Time: 13:19 jr8 06/14 12:27 Order name: XRAY Chest (1 view); Complete Time: 13:23 jr8 06/14 13:59 Order name: Glucose, Ancillary Testing; Complete Time: 14:06 EDMS 06/14 12:27 Order name: IV; Complete Time: 12:42 jr8 Administered Medications: 12:43 Drug: NS 0.9% 1000 ml Route: IV; Rate: 1000 ml; Site: right hand; vg1 13:50 Follow up: Response: No adverse reaction; IV Status: Completed infusion; IV Intake: ca1 1000ml 12:43 Drug: SOLU-Medrol 125 mg Route: IVP; Site: right hand; vg1 13:30 Follow up: Response: No adverse reaction; Marked relief of symptoms ca1 13:54 Drug: Insulin Regular Human 5 units {Co-Signature: ll1 (Mariel Ramos RN).} Route: IVP; ca1 Site: right hand; 14:17 Follow up: Response: No adverse reaction ca1 14:34 Follow up: Response: No adverse reaction; Blood sugar is lowered ca1 14:15 Drug: Insulin Regular Human 5 units {Co-Signature: ll1 (Mariel Ramos RN).} Route: ca1 Sub-Q; Site: left upper abdomen; 14:17 Follow up: Response: No adverse reaction ca1 14:34 Follow up: Response: Blood sugar is lowered ca1 Disposition: 06/15 06:04 Co-signature as Attending Physician, Dariel Wilson MD I agree with the assessment and kdr plan of care. Disposition: 06/14/20 14:09 Discharged to Home. Impression: SARS-associated coronavirus as the cause of diseases classified elsewhere, Viral pneumonia, unspecified. - Condition is Stable. - Discharge Instructions: COVID-19. - Prescriptions for ivermectin 3 mg Oral tablet - take 4 tablet by ORAL route Day 1 then 4 tablets again on day 3; 8 tablet. Tessalon Perles 100 mg Oral Capsule - take 1 capsule by ORAL route every 8 hours As needed; 15 capsule. Prednisone 20 mg Oral Tablet - take 1 tablet by ORAL route once daily for 10 days; 10 tablet. - Medication Reconciliation Form, Thank You Letter, Antibiotic Education, Prescription Opioid Use form. - Follow up: Private Physician; When: 2 - 3 days; Reason: Recheck today's complaints, Continuance of care, Re-evaluation by your physician. - Problem is new. - Symptoms have improved. Signatures: Dispatcher [employer] EDJudy Chow, RN RN Dariel Batista MD MD [facility] Shravan Robbins PA PA jr8 Sigrid Garcia, RN RN ca1 Robyn Munoz RN RN vg1 Mariel Ramos RN ll1 Corrections: (The following items were deleted from the chart) 06/14 14:34 14:09 06/14/2020 14:09 Discharged to Home. Impression: SARS-associated coronavirus as ca1 the cause of diseases classified elsewhere; Viral pneumonia, unspecified. Condition is Stable. Forms are Medication Reconciliation Form, Thank You Letter, Antibiotic Education, Prescription Opioid Use. Follow up: Private Physician; When: 2 - 3 days; Reason: Recheck today's complaints, Continuance of care, Re-evaluation by your physician. Problem is new. Symptoms have improved. jr8
[2020-06-14 14:39] VITALS: TEMP 99.1
[2020-06-14 14:43] VITALS: BP 129/75; O2SAT 95
== END 2020-06-14 14:34 | disposition home or self-care (01) ==
LOC: ER 10:29
DX: U07.1 COVID-19 (principal); J12.9 Viral pneumonia, unspecified; I10 Essential (primary) hypertension
CPT/HCPCS: 36415; 71045; 80048; 82947; 85025; 96361; 96372; 96374; 96375; 99284; J2930; J7030

== ENCOUNTER 2020-06-18 22:52 | Emergency (ER) | payer OTHER, SELFPAY ==
[2020-06-18 23:56] LABS: Absolute Lymphocytes (CBC) 2.3 K/uL (0.7-4.9); Basophils % 0.3 % (0-1.3); Hematocrit 44.4 % (36.0-45.0); Lymphocytes % 28.7 % (15.3-44.8); MPV 9.3 fL (7.6-11.3); RBC Red Blood Cell Count 5.46 M/uL (3.86-4.86)
[2020-06-19 00:05] LABS: ALT/SGPT 52 U/L (12-78); AST/SGOT 21 U/L (15-37); Albumin 3.5 g/dL (3.4-5.0); Alkaline Phosphatase 64 U/L (45-117); BUN Blood Urea Nitrogen 18 mg/dL (7-18); Bicarbonate 30 mmol/L (21-32); Bilirubin Direct < 0.1 mg/dL (0-0.2); Bilirubin Total 0.3 mg/dL (0.2-1.0); Glucose Level 192 mg/dL (74-106); Lipase 534 U/L (73-393); Potassium 4.1 mmol/L (3.5-5.1); Protein, Total 7.7 g/dL (6.4-8.2); Sodium Level 139 mmol/L (136-145)
[2020-06-19] MEDS ORDERED: NA CHLORIDE 0.9% 1,000 ML ONE (00:06)
--- NOTE | 2020-06-19 00:17 | ER ---
Nurse's Notes [facility] Name: Clarice Hall Age: 54 yrs Sex: Female : 1965 Arrival Date: 06/18/2020 Time: 22:53 Bed 15 Private MD: Diagnosis: Hyperglycemia, unspecified Presentation: 06/18 23:22 Chief complaint: Patient states: My blood sugar this morning was reading 400's, I have sg been on steroids for the viral infection and I talked with my doctor this morning and she couldn't tell me yes or no to take the steroids or not so I just didn't take them because I didn't want my blood sugar to go up higher than that. I have had some dizziness as well, no other symptoms reported for triage at this time. Coronavirus screen: Client denies travel out of the [place] in the last 14 days. Client presents with at least one sign or symptom that may indicate coronavirus-19. Standard/surgical mask placed on the client. Provider contacted for isolation considerations. Client reports previous positive COVID test result. Ebola Screen: Patient negative for fever greater than or equal to 101.5 degrees Fahrenheit, and additional compatible Ebola Virus Disease symptoms Patient denies exposure to infectious person. Patient denies travel to an Ebola-affected area in the 21 days before illness onset. No symptoms or risks identified at this time. Initial Sepsis Screen: Does the patient meet any 2 criteria? No. Patient's initial sepsis screen is negative. Does the patient have a suspected source of infection? No. Patient's initial sepsis screen is negative. Risk Assessment: Do you want to hurt yourself or someone else? Patient reports no desire to harm self or others. Onset of symptoms was June 18, 2020. Care prior to arrival: None. Transition of care: patient was not received from another setting of care. 23:22 Acuity: KASIA 3 sg 23:22 Method Of Arrival: Ambulatory sg Historical: - Allergies: 23:26 No Known Allergies; sg - PMHx: 23:26 Diabetes - NIDDM; Hypertension; sg - PSHx: 23:26 ; sg - Immunization history:: Adult Immunizations up to date. - Social history:: Smoking status: Patient denies any tobacco usage or history of. Screenin:30 Abuse screen: Denies threats or abuse. Nutritional screening: No deficits noted. jb4 Tuberculosis screening: No symptoms or risk factors identified. Fall Risk None identified. Assessment: 23:30 General: Appears in no apparent distress. comfortable, Behavior is calm, cooperative, jb4 appropriate for age. Pain: Denies pain. Neuro: Level of Consciousness is awake, alert, obeys commands, Oriented to person, place, time, situation. Cardiovascular: Patient's skin is warm and dry. Respiratory: Airway is patent Respiratory effort is even, unlabored, Respiratory pattern is regular, symmetrical. GI: No signs and/or symptoms were reported involving the gastrointestinal system. : No signs and/or symptoms were reported regarding the genitourinary system. EENT: No signs and/or symptoms were reported regarding the EENT system. Derm: Skin is intact, Skin is pink, warm \T\ dry. Musculoskeletal: Circulation, motion, and sensation intact. Range of motion: intact in all extremities. 06/19 00:56 Reassessment: Patient appears in no apparent distress at this time. Patient and/or jb4 family updated on plan of care and expected duration. Pain level reassessed. Patient is alert, oriented x 3, equal unlabored respirations, skin warm/dry/pink. Pt verbalized understanding of d/c and follow up instructions. Denies questions or concerns. Ambulated out of ED with steady gait. Vital Signs: 06/18 23:22 BP 138 / 78; Pulse 76; Resp 16; Temp 97.4(TE); Pulse Ox 99% on R/A; sg 06/19 00:00 BP 114 / 68; Pulse 72; Resp 16; Pulse Ox 97% on R/A; jb4 ED Course: 06/18 22:53 Patient arrived in ED. cl3 23:17 Shantanu Benz PA is PHCP. jmm 23:17 Yomi García MD is Attending Physician. jmm 23:22 Arm band placed on. sg 23:25 Triage completed. sg 23:30 Initial lab(s) drawn, by me, sent to lab. Inserted saline lock: 20 gauge in right jp3 antecubital area, using aseptic technique. Blood collected. Patient maintains SpO2 saturation greater than 95% on room air. 23:34 Bed in low position. Call light in reach. Side rails up X 1. Verbal reassurance given. jp3 Pulse ox on. NIBP on. 23:45 Ever Trejo, RN is Primary Nurse. jb4 06/19 00:56 No provider procedures requiring assistance completed. IV discontinued, intact, jb4 bleeding controlled, No redness/swelling at site. Pressure dressing applied. Administered Medications: 06/18 23:55 Drug: NS 0.9% 1000 ml Route: IV; Rate: 1 bolus; Site: right antecubital; jb4 06/19 00:57 Follow up: Response: No adverse reaction; IV Status: Order to discontinue infusion; IV jb4 Intake: 800ml Intake: 00:57 IV: 800ml; Total: 800ml. jb4 Outcome: 00:16 Discharge ordered by . sandeep 00:56 Discharged to home ambulatory. jb4 00:56 Condition: stable 00:56 Discharge instructions given to patient, Instructed on discharge instructions, follow up and referral plans. Demonstrated understanding of instructions, follow-up care. 00:57 Patient left the ED. jb4 Signatures: Michel Rhodes RN Shantanu Maldonado PA PA jmm Bryson, James, RN RN jb4 Bear Preston jp3 Ryan Ramos cl3
--- NOTE | 2020-06-19 00:17 | EDPHYS ---
Physician Documentation [facility] Name: Clarice Hall Age: 54 yrs Sex: Female : 1965 Arrival Date: 06/18/2020 Time: 22:53 Bed 15 Private MD: ED Physician Yomi García HPI: 06/18 23:44 This 54 yrs old Female presents to ER via Ambulatory with complaints of High jmm Blood Sugar, Covid+, Dizziness. 23:44 The patient or guardian reports hyperglycemia. Onset: The symptoms/episode jmm began/occurred this morning. Associated signs and symptoms: Pertinent negatives: vomiting. This is a 54 year old female with a history of DM, HTN that presents to the ED with concerns for elevated BGL since being diagnosed with covid. Patient does take regular insulin at home. Patient is taking steroids as well. Advised to D/C by pcp. Patient is also taking ivermectin. Patient denies vomiting, abdominal pain, denies shortness of breath but still has a cough. . Historical: - Allergies: 23:26 No Known Allergies; sg - PMHx: 23:26 Diabetes - NIDDM; Hypertension; sg - PSHx: 23:26 ; sg - Immunization history:: Adult Immunizations up to date. - Social history:: Smoking status: Patient denies any tobacco usage or history of. ROS: 23:44 Cardiovascular: Negative for chest pain, palpitations, and edema. jmm 23:44 Constitutional: Positive for body aches, chills. 23:44 Respiratory: Positive for cough. 23:44 Abdomen/GI: Negative for vomiting. 23:44 All other systems are negative. Exam: 23:44 Constitutional: This is a well developed, well nourished patient who is awake, alert, jmm and in no acute distress. Head/Face: atraumatic. Eyes: EOMI, no conjunctival erythema appreciated ENT: Moist Mucus Membranes Neck: Trachea midline, Supple Chest/axilla: Normal chest wall appearance and motion. Cardiovascular: Regular rate and rhythm. No edema appreciated Respiratory: Normal respirations, no respiratory distress appreciated Abdomen/GI: Non distended, soft Back: Normal ROM Skin: General appearance color normal MS/ Extremity: Moves all extremities, no obvious deformities appreciated, no edema noted to the lower extremities Neuro: Awake and alert, normal gait Psych: Behavior is normal, Mood is normal, Patient is cooperative and pleasant Vital Signs: 23:22 BP 138 / 78; Pulse 76; Resp 16; Temp 97.4(TE); Pulse Ox 99% on R/A; sg 06/19 00:00 BP 114 / 68; Pulse 72; Resp 16; Pulse Ox 97% on R/A; jb4 MDM: 06/18 23:33 Patient medically screened. [facility] 06/19 00:15 Data reviewed: vital signs, nurses notes. Counseling: I had a detailed discussion with [facility] the patient and/or guardian regarding: the historical points, exam findings, and any diagnostic results supporting the discharge/admit diagnosis, lab results, the need for outpatient follow up, to return to the emergency department if symptoms worsen or persist or if there are any questions or concerns that arise at home. ED course: BMP WNL, patient is advised to increased fluids. Discontinue steroids. Given strict return precautions. Patient understood and agrees with the plan of care. . 06/18 23:18 Order name: Basic Metabolic Panel; Complete Time: 00:07 [facility] 06/18 23:18 Order name: CBC with Diff; Complete Time: 00:05 [facility] 06/18 23:18 Order name: Hepatic Function; Complete Time: 00:07 [facility] 06/18 23:18 Order name: Lipase; Complete Time: 00:07 [facility] 06/18 23:18 Order name: Ketone, Serum; Complete Time: 00:07 [facility] 06/18 23:43 Order name: Glucose, Ancillary Testing; Complete Time: 23:46 [facility] 06/18 23:18 Order name: IV Saline Lock; Complete Time: 23:35 [facility] 06/18 23:18 Order name: Labs collected and sent; Complete Time: 23:35 [facility] Administered Medications: 06/18 23:55 Drug: NS 0.9% 1000 ml Route: IV; Rate: 1 bolus; Site: right antecubital; jb4 06/19 00:57 Follow up: Response: No adverse reaction; IV Status: Order to discontinue infusion; IV jb4 Intake: 800ml Disposition: 06/19/20 00:16 Discharged to Home. Impression: Hyperglycemia, unspecified. - Condition is Stable. - Discharge Instructions: Hyperglycemia. - Medication Reconciliation Form, Thank You Letter, Antibiotic Education, Prescription Opioid Use form. - Follow up: Private Physician; When: 2 - 3 days; Reason: Recheck today's complaints, Continuance of care, Re-evaluation by your physician. Addendum: 06/20/2020 06:58 Co-signature as Attending Physician, Yomi García MD. m a2 Signatures: Dispatcher [employer] EDMichel Holloway, RN RN Shantanu Pinto PA PA jmm Bryson, James, RN RN jb4 Yomi García MD MD ma2 Corrections: (The following items were deleted from the chart) 06/19 00:57 00:16 06/19/2020 00:16 Discharged to Home. Impression: Hyperglycemia, unspecified. jb4 Condition is Stable. Forms are Medication Reconciliation Form, Thank You Letter, Antibiotic Education, Prescription Opioid Use. Follow up: Private Physician; When: 2 - 3 days; Reason: Recheck today's complaints, Continuance of care, Re-evaluation by your physician. sandeep
--- OUTSIDE RECORDS SUMMARY | 2020-06-20 02:35 | XMS REPORT | Encounter Summary ---
:1965 Author Care Team Providers Name Role Phone Seun GONCALVES Primary Care Provider [phone] Reason for Visit Sick Instructions 1. COVID-19 2. Diabetes mellitus Blood Glucose Monitoring k it metformin ER 500 mg tablet ,extended release 24 hr Novolog Flexpen U-100 Insu salome aspart 100 unit/mL (3 mL) subcutaneous Discussion Note: None recorded.Patient educational handouts: No information available. Plan of Care Reminders Provider Appointments Return to on or around [facility], Office 06/18/2020 [facility] None recorded. Referral None recorded. Procedures None recorded. Surgeries None recorded. Imaging None recorded. Medications Name Start Date benzonatate 100 mg capsule TAKE ONE (1) CAPSULE(S) BY MOUTH EVERY EIGHT HOURS NEEDED FOR COUGH AND CONGESTION. glipizide 10 mg tablet TAKE ONE (1) TABLET(S) BY MOUTH TWICE A DAY WITH MEAL S FOR DIABETES. ivermectin 3 mg tablet TAKE FOUR (4) TABLET(S) BY MOUTH ON DAY 1, THEN TAKE FOUR (4) TABLETS AGAIN ON DAY 3. lisinopril 20 mg tablet TAKE ONE (1) TABLET(S) BY MOUTH ONCE A DAY IN THE MORNING FOR BLOOD PRESSURE AND RENAL PROTECTION. metformin ER 500 mg tablet,extended release 24 hr Take 1 tablet twice a day by oral route. Novolog Flexpen U-100 Insulin aspart 100 unit/mL (3 mL ) subcutaneous Inject 1 unit 3 times a day by subcutaneous route. prednisone 20 mg tablet TAKE ONE (1) TABLET(S) BY MOUTH ONCE A DAY FOR 10 DAY S. Medications Administered None recorded. Vitals Height Weight BMI 61 in 152 lbs 16 oz 28.9 kg/m2 Results Lab Results Date Name Specimen Result Interpretation Description Value Range Status Address 06/06/2020 Rapid SARS CoV Nose (nasal SARS-CoV positive In-Office + SARS CoV 2 passage) - 2 Or radha: Ag, QL [place], Manager Community al Use Respiratory Only DO Not Specimen Attach Compendium DO Not Attach Compendium , Do Not Delete/omid ge Allergies Code Code System Name Reaction Severity Status Onset NKDA Problems Name Status Onset Date Source Diabetes Mellitus Active 11/04/2018 Hypercholesterolemia Active 11/04/2018 Hypertensive Disorder Active 11/04/2018 Procedures Date Name Performed by Esophagogastroduodenoscopy (Surg) Inform ation not available Upper GI Endoscopy Information not avai lable Vaccine List None recorded. Social History Tobacco Smoking Status Never Smoker Past Encounters Encounter Date Diagnosis Provider 06/15/2020 Covid-19; Diabetes Mellitus Maria Teresa elise PA-C: [address], [place] [address], Ph. 06/06/2020 Suspected COVID-19; Covid-19 Maria Teresa morrison PA-C: [address], [place] [address], Ph. History of Present Illness Note: This is a telehealth visit using real-time audio-video communication. Patient is located at {{home*|other location}} and I am located at {{clinic*|home|other location}}. The participants are myself, the patient, and {{nurse*|medical assitant}}. Patient's consent is on file in the medical records.<div>
</div><div>Pt was seen at [facility] ER yesterday for COVIDcomplications, pt was given steroids, BG 315, given isulin. Pt is currently out of metformin and glipizide prev prescribed by IVANNA Mitchell. Pt is currently staying out of town, does not have blood glucose m achine with her.</div><div>
</div><div>Per patient was coughing a lot. So went to ER. </div><div>Chest Xray - viral pneumonia. Oxygen normal. Pt does not remember. </div><div>Pt was advised to get pulse ox. </div><div>Pt was given prednisone, ivermectin, benzonatate.</div><div>
</div><div>DMII: </d iv><div>Per patient has diabetes 2 yr. </div><div>PA Paula. Last lab work 7 months. </div><div>Per patient has been out Metformin/ glipizide since March. </div><div>Per patient has not been checking her sugars. </div><div>Pt is staying with her daughter in [place] </div><div>Per patient checked 3 weeks ago.</div><div>reports fasting was 115. highest 190. </div><div>Pt had jardiance at home. per patient reports she has been taking 1 tab per day. bc she had samples. </div><div>per patient reports no hx of kidney problems.</div><div>
</div> Review of Systems [facility] General Adul t ROS Reported By: Patient ENMT: Ears: no ear pain. Nose: no nose/sinus problems. Mouth/Throat: no sore throat Cardiovascular: Cardiovascular: no chest linsey n Respiratory: Respiratory: no wheezing, no shortness of breath, cough Gastrointestinal: Gastrointestinal: no abdomin al pain, no vomiting, no diarrhea, not vomiting blood Genitourinary: Genitourinary: no difficulty urinating Musculoskeletal: Musculoskeletal: no muscle a ches, no muscle weakness, no arthralgias/joint pain, no b ack pain Neurologic: Neurologic: no loss of consc iousness, no weakness, no numbness, no dizziness, no headaches Endocrine: Endocrine: no fatigue Physical Exam COVID-19 Exam Reported By: Patient General Appearance: General Appearance normal ap pearance, no acute distress"
--- OUTSIDE RECORDS SUMMARY | 2020-06-20 02:35 | XMS REPORT | Continuity of Care Document ---
:1965 Author Organization [facility] t Address [facility] [place] [address] Care Team Providers Name Role Phone Unavailable Unavailable Unavailable Problems Condition Condition Condition Status Onset Resolution Last Treating Co mments Source Name Details Category Date Date Treatment Clinician Date Diabetes Diabetes Problem Active [facility] mellitus Mellitus 6 da 00:00: [facility] 00 Group Hyperchole Hyperchole Problem Active [facility] sterolemia sterolemia 6 da 00:00: Medical 00 Group Hypertensi Hypertensi Problem Active [facility] ve ve 627 da disorder Disorder 00:00: Medica l 00 Group Type 2 Type 2 Problem Active [facility] diabetes Diabetes 918 da mellitus Mellitus 00:00: [facility] without without 00 al complicati Complicati He alth on on Outreac h Program Hyperlipid Hyperlipid Problem Active [facility] emia emia 918 da 00:[facility] Essential Essential Problem Active [facility] hypertensi Hypertensi 9-18 da on on 00:00: [facility] Obesity Obesity Problem Active [facility] Allergies, Adverse Reactions, Alerts This patient has no known allergies or adverse reactions. Social History Smoking Status Start Date Stop Date Source Never Smoker [facility] Medications Ordered Filled Start [...] diabetes diabetes day for h diabetes Program benzonatate benzonatate No benzonatat [facility] 100 mg 100 mg e 100 mg da capsule capsule capsule Medica l TAKE ONE TAKE ONE TAKE ONE [place] up (1) (1) (1) CAPSULE(S) CAPSULE(S) CAPSULE(S) BY MOUTH BY MOUTH BY MOUTH EVERY EIGHT EVERY EIGHT EVERY HOURS HOURS EIGHT NEEDED FOR NEEDED FOR HOURS COUGH AND COUGH AND NEEDED FOR CONGESTION. CONGESTION. COUGH AND CONGESTION . glipizide glipizide No glipizide [facility] 10 mg 10 mg 10 mg da tablet TAKE tablet TAKE tablet Medical ONE (1) ONE (1) TAKE ONE Group TABLET(S) TABLET(S) (1) BY MOUTH BY MOUTH TABLET(S) TWICE A DAY TWICE A DAY BY MOUTH WITH MEALS WITH MEALS TWICE A FOR FOR DAY WITH DIABETES. DIABETES. MEALS FOR DIABETES. ivermectin ivermectin No ivermectin [facility] 3 mg tablet 3 mg tablet 3 mg d a TAKE FOUR TAKE FOUR tablet Med ical (4) (4) TAKE FOUR Group TABLET(S) TABLET(S) (4) BY MOUTH ON BY MOUTH ON TABLET(S) DAY 1, THEN DAY 1, THEN BY MOUTH TAKE FOUR TAKE FOUR ON DAY 1, (4) TABLETS (4) TABLETS THEN TAKE AGAIN ON AGAIN ON FOUR (4) DAY 3. DAY 3. TABLETS AGAIN ON DAY 3. lisinopril lisinopril No lisinopril [facility] 20 mg 20 mg 20 mg da tablet TAKE tablet TAKE tablet Medical ONE (1) ONE (1) TAKE ONE Group TABLET(S) TABLET(S) (1) BY MOUTH BY MOUTH TABLET(S) ONCE A DAY ONCE A DAY BY MOUTH IN THE IN THE ONCE A DAY MORNING FOR MORNING FOR IN THE BLOOD BLOOD MORNING PRESSURE PRESSURE FOR BLOOD AND RENAL AND RENAL PRESSURE PROTECTION. PROTECTION. AND RENAL PROTECTION . metformin metformin No 1 BID metformin [facility] ER 500 mg ER 500 mg ER 500 mg da tablet,exte tablet,exte tablet,ext Medical nded nded ended Group release 24 release 24 release 24 hr Take 1 hr Take 1 hr Take 1 tablet tablet tablet twice a day twice a day twice a by oral by oral day by route. route. oral route. Novolog Novolog No 1unit(s TID Novolog [facility] Flexpen Flexpen ) Flexpen da U-100 U-100 U-100 Medical Insulin Insulin Insulin Group aspart 100 aspart 100 aspart 100 unit/mL (3 unit/mL (3 unit/mL (3 mL) mL) mL) subcutaneou subcutaneou subcutaneo s Inject 1 s Inject 1 us Inject unit 3 unit 3 1 unit 3 times a day times a day times a by by day by subcutaneou subcutaneou subcutaneo s route. s route. us route. prednisone prednisone No prednisone [facility] 20 mg 20 mg 20 mg da tablet TAKE tablet TAKE tablet Medical ONE (1) ONE (1) TAKE ONE Group TABLET(S) TABLET(S) (1) BY MOUTH BY MOUTH TABLET(S) ONCE A DAY ONCE A DAY BY MOUTH FOR 10 FOR 10 ONCE A DAY DAYS. DAYS. FOR 10 DAYS. Vital Signs Vital Name Observation Time Observation Value Comments Source Height 2020-06-15 00:00:00 61 [in_i] [facility] BMI (Body Mass 2020-06-15 00:00:00 28.9 kg/m2 [facility] Index) [facility] Body Weight 2020-06-15 00:00:00 2448 [oz_av] [facility] Height 2020-06-06 00:00:00 61 [in_i] [facility] BMI (Body Mass 2020-06-06 00:00:00 28.9 kg/m2 [facility] Index) Group Body Weight 2020-06-06 00:00:00 2448 [oz_av] [facility] BP Diastolic 2019-03-21 00:00:00 85 mm[Hg] [facility] Height 2019-03-21 00:00:00 61 [in_i] [facility] BMI (Body Mass 2019-03-21 00:00:00 27.6 kg/m2 [facility] BP Systolic 2019-03-21 00:00:00 130 mm[Hg] [facility] Body Weight 2019-03-21 00:00:00 146 [lb_av] [facility] BP Diastolic 2019-03-10 00:00:00 96 mm[Hg] [facility] Height 2019-03-10 00:00:00 61 [in_i] [facility] BMI (Body Mass 2019-03-10 00:00:00 28.3 kg/m2 [facility] Index) [facility] BP Systolic 2019-03-10 00:00:00 126 mm[Hg] [facility] Body Weight 2019-03-10 00:00:00 149.6 [lb_av] [facility] BP Diastolic 2019-01-20 00:00:00 74 mm[Hg] [facility] Height 2019-01-20 00:00:00 61 [in_i] [facility] BMI (Body Mass 2019-01-20 00:00:00 28.9 kg/m2 [facility] Index) Group BP Systolic 2019-01-20 00:00:00 136 mm[Hg] [facility] Body Weight 2019-01-20 00:00:00 153 [lb_av] [facility] BP Diastolic 2018-12-16 00:00:00 76 mm[Hg] [facility] Height 2018-12-16 00:00:00 61 [in_i] [facility] BMI (Body Mass 2018-12-16 00:00:00 28.9 kg/m2 [facility] Medical Index) Group BP Systolic 2018-12-16 00:00:00 138 mm[Hg] [facility] Body Weight 2018-12-16 00:00:00 153 [lb_av] [facility] BMI (Body Mass 2018-11-04 00:00:00 28.9 kg/m2 [facility] Medical Index) Group BP Systolic 2018-11-04 00:00:00 144 mm[Hg] [facility] Body Weight 2018-11-04 00:00:00 153 [lb_av] [facility] BP Diastolic 2018-11-04 00:00:00 83 mm[Hg] [facility] Height 2018-11-04 00:00:00 61 [in_i] [facility] Procedures Procedure Date / Time Performing Source Performed Clinician MAMMO, screening, digital, 2019-03-21 [facility] bilateral 00:00:00 [facility] NM, hepatobiliary scan, w/ CCK 2018-11-04 [facility] 00:[facility]:00 [facility] Upper GI Endoscopy [facility] Esophagogastroduodenoscopy (Surg) [facility] Tubal Ligation [facility] Plan of Care Planned Activity Planned Date Details Comments Source Diagnostic Test 2019-03-21 urinalysis, dipstick Pierre mode [...] Pending 00:00:00 [code = TSH + free [facility] T4, serum] [facility] Diagnostic Test 2019-03-21 lipid panel, serum [facility] Pending 00:00:00 [code = lipid panel, [facility] serum] [facility] Diagnostic Test 2019-03-21 pap, IG + CT/NG/TV [facility] Pending 00:00:00 [code = pap, IG + [facility] CT/NG/TV] [facility] m Diagnostic Test 2019-03-21 HIV 1+2 AB + HIV 1 [facility] Pending 00:00:00 p24 Ag, qualitative [facility] immunoassay, serum [facility] [code = HIV 1+2 AB + HIV 1 p24 Ag, qualitative immunoassay, serum] Diagnostic Test 2019-03-21 RPR (rapid plasma [place] Pending 00:00:00 reagin), serum [code [facility] = RPR (rapid plasma [facility] reagin), serum] Diagnostic Test 2019-03-21 HBsAg (hepatitis B [facility] Pending 00:00:00 surface Ag), EIA, [facility] serum [code = HBsAg [facility] (hepatitis B surface Ag), EIA, serum] Diagnostic Test 2019-03-21 culture, urine [code [facility] mode Pending 00:00:00 = culture, urine] [facility] Encounters Start End Encounter Admission Attending Care Care Encounter Source Date/Time Date/Time Type Type Clinicians Facility Department ID 2020-06-15 2020-06-15 Maria Teresa YEE [place] - [id number] [facility] 00:00:00 00:00:00 Discovery singh Trevizo PA-C: [address] [facility] [address] [place] [address] , Ph. 2020-06-06 2020-06-06 Maria Teresa YEE [place] - [id number] [facility] 00:00:00 00:00:00 Discovery singh Trevizo PA-C: [address] [facility] - [address], [facility] [place] [address] , Ph. 2019-03-21 2019-03-21 Claudia NAPOLES [place] - [id number] [facility] 00:00:00 00:00:00 Asya Lopez, [facility] SPA CONSULTANT: [address] [facility] al Kamleshe F N, DOOR [facility] [place] [address] Progr am , Ph. 2019-03-10 2019-03-10 Seun Boykin DCRAJESH [place] - [id number] 1 [place] 00:00:00 00:00:00 IVANNA Mitchell: Alberto joseph 17[address] [facility], [facility] 3, [address] [address] Progr am , Ph. 2019-01-20 2019-01-20 Jared [facility] [place] - [id number] [facility] 00:00:00 00:00:00 Sebastian Lovell MD: Medical Medica [address], [place] [address] , Ph. [phone] 2018-12-16 2018-12-16 Jared [facility] [place] - [id number] [facility] 00:00:00 00:00:00 Sebastian Lovell MD: Medical [facility] [address], [place] [address] , Ph. [phone] 2018-11-04 2018-11-04 Gustavo [facility] [place] - [id number] [facility] 00:00:00 00:00:00 DO Kevin: Discovery olivier joseph [address] [place] [address] - [address], [facility] [address] , Ph. [phone] Results Test Description Test Time Test Comments Results Result Comments Source SARS-CoV+SARS-CoV-2 (COVID-19) Ag [Presence] in Respiratory 2020-06-06 16:28:00 specimen by Rapid immunoassay Test Item Value Reference Range Interpretation Comme nts SARS-CoV - 2 (test code = [facility]-CoV - 2) [id number] 07:50:00 Test Item Value Reference Range Interpretation Comments Surgical pathology see separate pathology study (test code = report. [id number]) [facility]
== END 2020-06-19 00:57 | disposition home or self-care (01) ==
LOC: ER 22:52
DX: E11.65 Type 2 diabetes mellitus with hyperglycemia (principal); Z86.16 Personal history of COVID-19; I10 Essential (primary) hypertension
CPT/HCPCS: 36415; 80048; 80076; 82010; 82947; 83690; 85025; 96360; 99284

== ENCOUNTER 2022-10-04 11:03 | Emergency (ER) | payer OTHER ==
--- OUTSIDE RECORDS SUMMARY | 2022-10-04 11:07 | XMS REPORT | Continuity of Care Document ---
:1965 Author Organization [facility] t Address [address] [facility] [address] [place] [address] Care Team Providers Name Role Phone ROQUE Attending Clinician Unavailable BO Attending Clinician Unavailable Juma Attending Clinician Unavailable Juan Attending Clinician Unavailable Blu Attending Clinician Unavailable ROQUE Admitting Clinician Unavailable BO Admitting Clinician Unavailable Juma Admitting Clinician Unavailable Juan Admitting Clinician Unavailable Blu Admitting Clinician Unavailable Payers Payer Name Policy Type Policy Number Effective Date Expiration Date S ourpaul [facility] [id number] [facility] [id number] (PPO) Problems Condition Condition Condition Status Onset Resolution Last Treating Co mments Source Name Details Category Date Date Treatment Clinician Date Hyperlipid Hyperlipid Problem Active [facility] [place] emia emia 5-05 da 00:00: Medical 00 Group Type 2 Type 2 Problem Active [place] diabetes Diabetes 4-01 da mellitus Mellitus 00:00: Medica l without without 00 Group complicati Complicati on on Benign Benign Problem Active [place] essential Essential 4-01 da hypertensi Hypertensi 00:00: Me dical on on Group Diabetes Diabetes Problem Active [place] mellitus Mellitus 6-27 da 00:00: Medical 00 Group Hyperchole Hyperchole Problem Active [facility] [place] sterolemia sterolemia 6-27 da 00:00: Medical 00 Group Hypertensi Hypertensi Problem Active [place] ve ve 6-27 da disorder Disorder 00:00: Medica l 00 Group Type 2 Type 2 Problem Active [place] diabetes Diabetes 9-18 da mellitus Mellitus 00:00: [facility] without without 00 al complicati Complicati He alth on on ac h Program Hyperlipid Hyperlipid Problem Active [facility] [place] emia emia 18 [facility] Essential Essential Problem Active [facility] [place] hypertensi Hypertensi -18 da on on 00:00: [facility] Obesity Obesity Problem Active [place] [facility] Allergies, Adverse Reactions, Alerts This patient has no known allergies or adverse reactions. Social History Smoking Status Start Date Stop Date Source Never Smoker [facility] Medications Ordered Filled Start Stop Current Ordering Indication Dosage Frequency Signature Comments Components Source Medication Medication Date Date Medication? Clinician (SIG) Name Name antwon kapoor No 1 Q1D atorvastat [place] 10 mg n 10 mg in 10 mg da tablet Take tablet Take tablet Medical 1 tablet 1 tablet Take 1 Group every day every day tablet by oral by oral every day route. route. by oral route. glipizide 5 glipizide 5 No 1 Q1D glipizide [place] mg tablet mg tablet 5 mg da Take 1 Take 1 tablet Medical tablet tablet Take 1 Group every day every day tablet by oral by oral every day route. route. by oral route. insulin insulin No insulin [place] lispro lispro lispro da (U-100) 100 (U-100) 100 (U-100) Medical unit/mL unit/mL 100 Group subcutaneou subcutaneou unit/mL s pen USE s pen USE subcutaneo PER SLIDING PER SLIDING us pen USE SCALE (MAX SCALE (MAX PER DOSE OF 8 DOSE OF 8 SLIDING UNITS PER UNITS PER SCALE (MAX USE) THREE USE) THREE DOSE OF 8 TIMES TIMES UNITS PER DAILY. DAILY. USE) THREE TIMES DAILY. lisinopril lisinopril No lisinopril [place] 10 mg 10 mg 10 mg da tablet TAKE tablet TAKE tablet Medical ONE (1) ONE (1) TAKE ONE Group TABLET(S) TABLET(S) (1) BY MOUTH BY MOUTH TABLET(S) ONCE A DAY. ONCE A DAY. BY MOUTH ONCE A DAY. metformin metformin No 1 BID metformin [place] ER 1,000 mg ER 1,000 mg ER 1,000 da tablet,exte tablet,exte mg M edical nded nded tablet,ext Group release release ended 24hr Take 1 24hr Take 1 release tablet tablet 24hr Take twice a day twice a day 1 tablet by oral by oral twice a route. route. day by oral route. metformin metformin No metformin [place] ER 500 mg ER 500 mg ER 500 mg da tablet,exte tablet,exte tablet,ext Medical nded nded ended Group release 24 release 24 release 24 hr TAKE ONE hr TAKE ONE hr TAKE (1) (1) ONE (1) TABLET(S) TABLET(S) TABLET(S) BY MOUTH BY MOUTH BY MOUTH TWICE A TWICE A TWICE A DAY. DAY. DAY. Novolog Novolog No Novolog [place] Flexpen Flexpen Flexpen da U-100 U-100 U-100 Medical Insulin Insulin Insulin Group aspart 100 aspart 100 aspart 100 unit/mL (3 unit/mL (3 unit/mL (3 mL) mL) mL) subcutaneou subcutaneou subcutaneo s USE THREE s USE THREE us USE TIMES A DAY TIMES A DAY THREE PER PER TIMES A SCLIDING SCLIDING DAY PER SCALE. MAX SCALE. MAX SCLIDING OF 8 DOSES OF 8 DOSES SCALE. MAX PER MEAL. PER MEAL. OF 8 DOSES PER MEAL. nystatin nystatin No nystatin [place] 100,000 100,000 100,000 da unit/gram unit/gram unit/gram Medical topical topical topical Group cream APPLY cream APPLY cream TO AFFECTED TO AFFECTED APPLY TO AREA TWICE AREA TWICE AFFECTED A DAY A DAY AREA TWICE (OUTSIDE (OUTSIDE A DAY LABIA). LABIA). (OUTSIDE LABIA). OneTouch OneTouch No OneTouch [place] Delica Plus Delica Plus Delica da Lancet 33 Lancet 33 Plus Medic al gauge USE gauge USE Lancet 33 Group DIRECTED DIRECTED gauge USE THREE TIMES THREE TIMES A DAY. A DAY. DIRECTED THREE TIMES A DAY. OneTouch OneTouch No OneTouch [place] Ultra Blue Ultra Blue Ultra Blue da Test Strip Test Strip Test Strip Medical USE USE USE Group DIRECTED DIRECTED DIRECTED THREE TIMES THREE TIMES THREE A DAY. A DAY. TIMES A DAY. OneTouch OneTouch No OneTouch [place] Ultra2 Ultra2 Ultra2 da Meter USE Meter USE Meter USE Medical DIRECTED DIRECTED John vargas (CHECK (CHECK DIRECTED BLOOD SUGAR BLOOD SUGAR (CHECK 3 TIMES 3 TIMES BLOOD DAILY). DAILY). SUGAR 3 TIMES DAILY). UltiCare UltiCare No UltiCare [place] Pen Needle Pen Needle Pen Needle da 31 gauge x 31 gauge x 31 gauge x Medical 09/23" USE 09/23" USE 09/23" USE Group DIRECTED DIRECTED TO TO DIRECTED ADMINISTER ADMINISTER TO INSULIN INSULIN ADMINISTER ONCE DAILY ONCE DAILY INSULIN ONCE DAILY atorvastati atorvastati No atorvastat [place] 20 [...] diabetes diabetes day for h diabetes Program Vital Signs Vital Name Observation Time Observation Value Comments Source BP Diastolic 2020-09-12 00:00:00 88 mm[Hg] [facility] Height 2020-09-12 00:00:00 61 [in_i] [facility] BMI (Body Mass 2020-09-12 00:00:00 28.5 kg/m2 [facility]) Group BP Systolic 2020-09-12 00:00:00 131 mm[Hg] [facility] Body Weight 2020-09-12 00:00:00 2416 [oz_av] [facility] BP Diastolic 2020-08-10 00:00:00 92 mm[Hg] [facility] Height 2020-08-10 00:00:00 61 [in_i] [facility] BMI (Body Mass 2020-08-10 00:00:00 28.7 kg/m2 [facility]) Group BP Systolic 2020-08-10 00:00:00 160 mm[Hg] [facility] Body Weight 2020-08-10 00:00:00 2432 [oz_av] [facility] Height 2020-06-20 00:00:00 61 [in_i] [facility] BMI (Body Mass 2020-06-20 00:00:00 28.9 kg/m2 [facility]) Group Body Weight 2020-06-20 00:00:00 2448 [oz_av] [facility] Height 2020-06-15 00:00:00 61 [in_i] [facility] BMI (Body Mass 2020-06-15 00:00:00 28.9 kg/m2 [facility]) Group Body Weight 2020-06-15 00:00:00 2448 [oz_av] [facility] Height 2020-06-06 00:00:00 61 [in_i] [facility] BMI (Body Mass 2020-06-06 00:00:00 28.9 [facility] Body Weight 2020-06-06 00:00:00 2448 [oz_av] [facility] BP Diastolic 2019-03-21 00:00:00 85 mm[Hg] [facility] [facility] Height 2019-03-21 00:00:00 61 [in_i] [facility] BMI (Body Mass 2019-03-21 00:00:00 27.6 kg/m2 [facility]) [facility] BP Systolic 2019-03-21 00:00:00 130 mm[Hg] [facility] [facility] Body Weight 2019-03-21 00:00:00 146 [lb_av] [facility] BP Diastolic 2019-03-10 00:00:00 96 mm[Hg] [facility] [facility] Height 2019-03-10 00:00:00 61 [in_i] [place] [facility] BMI (Body Mass 2019-03-10 00:00:00 28.3 kg/m2 [place] [facility] BP Systolic 2019-03-10 00:00:00 126 mm[Hg] [place] [facility] Body Weight 2019-03-10 00:00:00 149.6 [lb_av] [place] [facility] BP Diastolic 2019-01-20 00:00:00 74 mm[Hg] [facility] Height 2019-01-20 00:00:00 61 [in_i] [facility] BMI (Body Mass 2019-01-20 00:00:00 28.9 kg/m2 [facility] Index) Group BP Systolic 2019-01-20 00:00:00 136 mm[Hg] [facility] Body Weight 2019-01-20 00:00:00 153 [lb_av] [facility] BP Diastolic 2018-12-16 00:00:00 76 mm[Hg] [facility] Height 2018-12-16 00:00:00 61 [in_i] [facility] BMI (Body Mass 2018-12-16 00:00:00 28.9 kg/m2 [place] [facility] Index) Group BP Systolic 2018-12-16 00:00:00 138 mm[Hg] [facility] Body Weight 2018-12-16 00:00:00 153 [lb_av] [facility] BP Diastolic 2018-11-04 00:00:00 83 [facility] Height 2018-11-04 00:00:00 61 [in_i[facility] BMI (Body Mass 2018-11-04 00:00:00 28.9 kg/m2 [facility] Index) Group BP Systolic 2018-11-04 00:00:00 144 mm[facility]Hg[facility] Body Weight 2018-11-04 00:00:00 153 [lb_av] [facility] Procedures Procedure Date / Time Performing Source Performed Clinician MAMMO, screening, digital, 2020-08-10 [place] bilateral 00:00:00 Medical Group MAMMO, screening, digital, 2019-03-21 [place] bilateral 00:00:00 [facility] NM, hepatobiliary scan, w/ CCK 2018-11-04 [facility] [place] 00:00:00 Medical Group Upper GI Endoscopy [facility] Esophagogastroduodenoscopy (Surg) [facility] Tubal Ligation [facility] Plan of Care Planned [...] Pending 00:00:00 [code = TSH + free [facility] T4, serum] Outreach Pro[facility] m Diagnostic Test 2019-03-21 lipid panel, serum [place] lead Pending 00:00:00 [code = lipid panel, [facility] serum] Outreach Pro[facility] m Diagnostic Test 2019-03-21 pap, IG + CT/NG/TV [place] lead Pending 00:00:00 [code = pap, IG + [facility] CT/NG/TV] Outreach Progra m Diagnostic Test 2019-03-21 HIV 1+2 AB + HIV 1 [place] lead Pending 00:00:00 p24 Ag, qualitative [facility] immunoassay, serum Outreach Program [code = HIV 1+2 AB + HIV 1 p24 Ag, qualitative immunoassay, serum] Diagnostic Test 2019-03-21 RPR (rapid plasma [place] Pending 00:00:00 reagin), serum [facility]rapid [facility]reach Program reagin), serum] Diagnostic Test 2019-03-21 HBsAg (hepatitis B [place] lead Pending 00:00:00 surface Ag), EIA, [facility] serum [code = HBsAg Outreach Program (hepatitis B surface Ag), EIA, serum] Diagnostic Test 2019-03-21 culture, urine [code Pierre mode Pending 00:00:00 = culture, urine] [facility] Outreach Progra m Encounters Start End Encounter Admission Attending Care Care Encounter Source Date/Time Date/Time Type Type Clinicians Facility Department ID 2022-09-04 2022-09-04 Outpatient AMBREEN_JAY MORAJESH [facility] [id number] [place] 00:00:00 00:00:00 HANA 0427 da [facility] 2021-07-24 2021-07-24 Outpatient NEESE_ROMAN [facility] [id number] [place] 04:53:00 04:53:00 0316 da [facility] 2020-12-07 2020-12-07 Outpatient Koudela_A [facility] [id number] -[id number] [place] 01:17:00 01:17:00 0730 da Medical Group 2020-11-03 2020-11-03 Outpatient Koudela_A G [facility] [id number] -[id number] [place] 01:02:00 01:02:00 0626 da Medical Group 2020-09-29 2020-09-29 [facility] [id number] -[id number] [place] 01:03:00 01:03:00 0522 da Medical Group 2020-09-12 2020-09-12 Maria Teresa Koudela_A [facility] [place] - [id number] 21 [place] 00:00:00 00:00:00 Koudela, Discovery 0505 da PA-C: [address] [place] [address] , Ph. 2020-08-23 2020-08-23 Outpatient Hawkins_M [facility] [id number] -[id number] [place] 05:52:00 05:52:00 0415 da Medical Group 2020-08-11 2020-08-11 Outpatient Koudela_A [facility] [id number] -[id number] [place] 01:02:00 01:02:00 0403 da Medical Group 2020-08-10 2020-08-10 Maria [place] K[place] - [id number] 21 [place] 00:00:00 00:00:00 Discovery Santhosh 0402 da PA-C: [address] [place] [address] , Ph. 2020-07-07 2020-07-07 Outpatient Koudela_A [facility]G [id number] -[id number] [place] 01:03:00 01:03:00 0227 da Medical Group 2020-07-05 2020-07-05 Outpatient Koudela_A [facility]G [id number] -[id number] [place] 03:14:00 03:14:00 0225 da Medical Group 2020-06-26 2020-06-26 Outpatient Koudela_A [facility] [id number] -[id number] [place] 11:09:00 11:09:00 0216 da Medical Group 2020-06-20 2020-06-20 Maria [place] K[place]ela_[place] - [id number] 21 [place] 00:00:00 00:00:00 Discovery Santhosh 0210 da PA-C: [address] [place] [address] , Ph. 2020-06-17 2020-06-17 Outpatient Koudela_A [facility]G [id number] -[id number] [place] 03:25:00 03:25:00 0207 da Medical Group 2020-06-15 2020-06-15 [place] - [id number] 21 [place] 00:00:00 00:00:00 Discovery Santhosh 0205 da PA-C: 600 [facility] [address] [place] [address] , Ph. 2020-06-13 2020-06-13 Outpatient Santhosh_A KANCHANG [facility] [id number] -2020 [place] 11:48:00 11:48:00 0203 da Medical Group 2020-06-06 2020-06-06 [place] - [id number] 21 [place] 00:00:00 00:00:00 Discovery Santhosh 0127 da PA-C: 600 [facility] 201, [place] [address] , Ph. 2020-03-28 2020-03-28 Outpatient Young_J JOSELITO [facility] [id number] [place] 02:39:00 02:39:00 1118 da Medical Group 2019-11-02 2019-11-02 Outpatient NEESE[facility]AN [facility] [place] [id number] [place] 11:57:00 11:57:00 0624 [facility] 2019-10-14 2019-10-14 Outpatient NEESE_ROMAN [facility] [id number] [place] 09:33:00 09:33:00 0605 [facility] 2019-09-27 2019-09-27 Outpatient NEESE_ROMAN [facility] [id number] [place] 04:39:00 04:39:00 0519 [facility] 2019-07-31 2019-07-31 Outpatient NESMOOTH_ROMAN [place] [facility] [id number] [place] 12:14:00 12:14:00 0322 [facility] 2019-03-21 2019-03-21 [place] - [id number] [place] 00:00:00 00:00:00 Asya Dominguez 1111 da [place]ega, [facility] 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 2019-03-10 2019-03-10 [place] - [id number] [id number] [place] 00:00:00 00:00:00 IVANNA Mitchell: Alberto 1031 d a 1700 [facility] Wood [facility] Kim, [facility] 3, [address], [facility] [address] Progr am , Ph. 2019-01-20 2019-01-20 Jared [facility] [place] - [id number] [place] 00:00:00 00:00:00 Sebastian Toussaint 0912 singh Heath MD: Medical Medica [address], [place] [phone] , Ph. [phone] 2018-12-16 2018-12-16 Jared [facility] [place] - [id number] [place] 00:00:00 00:00:00 Sebastian Toussaint 08Martin Lovell MD: Medical Medica [address], General [address], [place] [phone] , Ph. [phone] 2018-11-04 2018-11-04 Gustavo [facility] [place] - [id number] [place] 00:00:00 00:00:00 DO Kevin: Discovery Nolen27 olivier a [address] [place] [address] - [address], [place] [phone] , Ph. [phone] Results Test Description Test Time Test Comments Results Result Comments Source Comprehensive metabolic 2000 panel - Serum or Plasma 2020-08 09:51:00 Test Item Value Reference Range Interpretation Comme nts glucose (test code = glucose) 269 mg/dL 74-106 H Urea nitrogen [Mass/volume] in Serum or Plasma (test code = 15 mg/d L 620 3094-0) osmolality calculated,serum (test code = osmolality 286 mOsm/kg 28 0-300 calculated,serum) creatinine (test code = creatinine) 0.7 mg/dL 0.50-0.90 glomerular filtration rate (test code = glomerular >60.00 filtration rate) Urea nitrogen/Creatinine [Mass Ratio] in Serum or Plasma 21.4 12-20 H (test code = 3097-3) sodium level (test code = sodium level) 138 mmol/L 135-145 Potassium [Moles/volume] in Body fluid (test code = 2821-7) 4.5 mmo l/L 3.5-5.2 chloride level (test code = chloride level) 100 mmol/L 98-108 CO2 (test code = CO2) 28 mmol/L 21-32 anion gap (test code = anion gap) 14.5 mEq/L 12-20 calcium level (test code = calcium level) 9.6 mg/dL 8.6-10.0 total protein (test code = total protein) 7.2 g/dL 6.6-8.7 albumin (test code = albumin) 4.2 g/dL 3.5-5.2 globulin (test code = globulin) 3.0 gm/dL A/G ratio (test code = A/G ratio) 1.4 >1.0 bilirubin,total (test code = bilirubin,total) 0.5 mg/dL 0.0-1.2 AST/SGOT (test code = AST/SGOT) 27 U/L 15-32 Alanine aminotransferase [Enzymatic activity/volume] in 33 U/L 0-33 Serum or Plasma (test code = 1742-6) Alkaline phosphatase [Enzymatic activity/volume] in Serum 59 U/L 35-105 or Plasma (test code = 6768-6) [facility] - Serum or [id number] 09:51:00 Test Item Value Reference Range Interpretation Comments cholesterol level (test code = 217 mg/dL 150-200 H cholesterol level) triglycerides level (test code = 133 mg/dL <150 triglycerides level) HDL cholesterol (test code = HDL 43 mg/dL >65 L cholesterol) LDL cholesterol direct (test code = 168 mg/dL <100 H LDL cholesterol direct) cholesterol risk ratio (test code = 5.046 cholesterol risk ratio) [facility]Mass/volume] in [id number] 09:51:00 Test Item Value Reference Range Interpretation Comments Hemoglobin A1c [Mass/volume] in Blood 10.3 % 4.0-6.0 H (test code = 40904-3) [facility] Ag [Presence] in Respiratory specimen by Rapid [id number] 16:28:00 Test Item Value Reference Range Interpretation Comments SARS-CoV - 2 (test code = SARS-CoV - positive 2) [facility] Ag [Presence] in Respiratory specimen by Rapid [id number] 16:28:00 Test Item Value Reference Range Interpretation Comments SARS-CoV - 2 (test code = SARS-CoV - positive 2) [facility] [id number] 07:50:00 Test Item Value Reference Range Interpretation Comments Surgical pathology see separate pathology study (test code = report. 79590-2) [facility]
[2022-10-04 12:52] LABS: Absolute Lymphocytes (CBC) 1.4 K/uL (0.7-4.9); Lymphocytes % 14.1 % (15.3-44.8); MPV 8.7 fL (7.6-11.3); RBC Red Blood Cell Count 4.94 M/uL (3.86-4.86)
[2022-10-04 13:09] LABS: Albumin 3.9 g/dL (3.4-5.0); Bilirubin Total 0.5 mg/dL (0.2-1.0)
[2022-10-04 13:55] LABS: Specific Gravity 1.006 (1.005-1.030); Urine Bacteria None Seen /HPF (<20); Urine Bilirubin NEGATIVE (Negative); Urine Blood 2+ (Negative); Urine Clarity Turbid (Clear); Urine Color Colorless (Yellow); Urine Glucose 3+ (Negative); Urine Mucus Slight /HPF (None Seen); Urine Protein TRACE (Negative); Urine RBC 21-50 /HPF (None Seen); Urine Urobilinogen Normal (Normal); Urine WBC Clump Occasional /HPF (None Seen); Urine pH 5.5 (5.0-7.0)
[2022-10-04] MEDS ORDERED: CEFTRIAXONE 1000 MG/VIAL ONE (14:59)
--- NOTE | 2022-10-04 15:12 | ER ---
Nurse's Notes [facility] Name: Clarice Hall Age: 57 yrs Sex: Female : 1965 Arrival Date: 10/04/2022 Time: 11:03 Bed 7 Private MD: Diagnosis: UTI/ Urinary tract infection, site not specified Presentation: 10/04 11:38 Chief complaint: Patient states: Lower abdominal pain since yesterday, worse when she nj1 urinates. Started with nausea Thursday. Butler dizzy earlier today. Coronavirus screen: Vaccine status: Patient reports receiving the 2nd dose of the covid vaccine. Ebola Screen: Patient denies travel to an Ebola-affected area in the 21 days before illness onset. Initial Sepsis Screen: Does the patient meet any 2 criteria? HR > 90 bpm. No. Patient's initial sepsis screen is negative. Does the patient have a suspected source of infection? No. Patient's initial sepsis screen is negative. Risk Assessment: Do you want to hurt yourself or someone else? Patient reports no desire to harm self or others. Onset of symptoms was October 03, 2022. 11:38 Method Of Arrival: Ambulatory [facility] 11:38 Acuity: KASIA 3 nj1 Historical: - Allergies: 11:43 No Known Allergies; nj1 - PMHx: 11:43 Diabetes - NIDDM; Hypertension; nj1 - PSHx: 11:43 None; nj1 - Immunization history:: Client reports receiving the 2nd dose of the Covid vaccine. - Social history:: Smoking status: Patient denies any tobacco usage or history of. Screenin:58 [facility] ED Fall Risk Assessment (Adult) History of falling in the last 3 months, ko1 including since admission No falls in past 3 months (0 pts) Confusion or Disorientation No (0 pts) Intoxicated or Sedated No (0 pts) Impaired Gait No (0 pts) Mobility Assist Device Used No (0 pt) Altered Elimination No (0 pt) Score/Fall Risk Level 0 - 2 = Low Risk Oriented to surroundings, Maintained a safe environment, Educated pt \T\ family on fall prevention, incl call for assistance when getting out of bed, Assessed \T\ reinforced patient's understanding of fall precautions, Provided non-skid footwear, Hourly rounding (assess needs \T\ fall precautionary measures) done, Used ambulatory aids as needed (educated on \T\ assisted with), Used gait belt as appropriate. Abuse screen: Denies threats or abuse. Denies injuries from another. Nutritional screening: No deficits noted. Tuberculosis screening: No symptoms or risk factors identified. Assessment: 15:00 General: Appears in no apparent distress. uncomfortable, Behavior is calm, cooperative, ko1 appropriate for age. Pain: Complains of pain in pelvis. Neuro: No deficits noted. Gonzalez Agitation-Sedation Scale (RASS): 0 - Alert and Calm. Cardiovascular: No deficits noted. Respiratory: No deficits noted. GI: Abdomen is non-distended. : Reports urinary frequency. EENT: No deficits noted. Derm: No deficits noted. Musculoskeletal: No deficits noted. Vital Signs: 11:38 BP 160 / 100; Pulse 92; Resp 18; Temp 99.3; Pulse Ox 99% ; Weight 69.85 kg; Height 5 nj1 ft. 1 in. ; Pain 10/10; 14:57 BP 148 / 78; Pulse 84; Resp 18; Pulse Ox 99% ; ko1 11:38 Body Mass Index 29.10 (69.85 kg, 154.94 cm) nj1 11:38 Pain Scale: Adult [facility] ED Course: 11:05 Patient arrived in ED. ts1 11:36 Shantanu Benz PA is PHCP. [facility] 11:36 Kade Guzmán MD is Attending Physician. jmm 11:43 Triage completed. nj1 11:44 Arm band placed on right wrist. nj1 12:50 CBC with Diff Sent. bc6 12:50 CMP Sent. bc6 12:50 Lipase Sent. bc6 12:50 Urinalysis w/ reflexes Sent. bc6 12:50 Inserted saline lock: 22 gauge in left antecubital area, using aseptic technique. bc6 14:58 Patient has correct armband on for positive identification. Bed in low position. Call ko1 light in reach. Pulse ox on. NIBP on. Warm blanket given. 15:00 Primary Nurse role handed off by Tay Soto, RN ko1 15:00 Jackie Mcqueen, RN is Primary Nurse. ko1 15:22 No provider procedures requiring assistance completed. IV discontinued, intact, ko1 bleeding controlled, No redness/swelling at site. Pressure dressing applied. Administered Medications: 14:57 Drug: Rocephin IV 1 grams Route: IV; Rate: calculated rate; Site: left antecubital; ko1 15:23 Follow up: Response: No adverse reaction ko1 Medication: 15:00 VIS not applicable for this client. ko1 Outcome: 15:11 Discharge ordered by . sandeep 15:22 Discharged to home ambulatory. ko1 15:22 Condition: stable 15:22 Discharge instructions given to patient, Instructed on discharge instructions, follow up and referral plans. medication usage, Demonstrated understanding of instructions, follow-up care, medications, Prescriptions given X 1. 15:23 Patient left the ED. ko1 Signatures: Shantanu Benz PA PA jmm Peltier, Brian, RN RN bp Jackie Mcqueen RN RN ko1 Kimberley Martinez6 Naomie Hyman RN RN nj1 Harriett Mckeon, JEREMIAH PAS ts1 Corrections: (The following items were deleted from the chart) 15:00 14:47 Tay Soto, RN is Primary Nurse. bp ko1
--- NOTE | 2022-10-04 15:12 | EDPHYS ---
Physician Documentation [facility] Name: Clarice Hall Age: 57 yrs Sex: Female : 1965 Arrival Date: 10/04/2022 Time: 11:03 Bed 7 Private MD: AR[place] Physician Kade Guzmán HPI: 10/04 11:46 This 57 yrs old Female presents to ER via Ambulatory with complaints of Pelvic jmm Pain, Nausea, Dizziness. 11:46 Is a 57-year-old female with history of diabetes mellitus, hypertension the presents [facility] emerged part with complaints of pelvic pain, dysuria and back pain. Patient has had similar episodes in the past with previous urinary tract infections. Denies vomiting but states having some nausea. Denies diarrhea.. Historical: - Allergies: 11:43 No Known Allergies; nj1 - PMHx: 11:43 Diabetes - NIDDM; Hypertension; nj1 - PSHx: 11:43 None; nj1 - Immunization history:: Client reports receiving the 2nd dose of the Covid vaccine. - Social history:: Smoking status: Patient denies any tobacco usage or history of. ROS: 11:46 Cardiovascular: Negative for chest pain, palpitations, and edema, Respiratory: Negative jmm for shortness of breath, cough, wheezing, and pleuritic chest pain. 11:46 Constitutional: Positive for body aches. 11:46 : Positive for urinary symptoms. 11:46 All other systems are negative. Exam: 11:46 Constitutional: This is a well developed, well nourished patient who is awake, alert, jmm and in no acute distress. Head/Face: atraumatic. Eyes: EOMI, no conjunctival erythema appreciated ENT: Moist Mucus Membranes Neck: Trachea midline, Supple Chest/axilla: Normal chest wall appearance and motion. Cardiovascular: Regular rate and rhythm. No edema appreciated Respiratory: Normal respirations, no respiratory distress appreciated Abdomen/GI: Non distended Back: Normal ROM Skin: General appearance color normal MS/ Extremity: Moves all extremities, no obvious deformities appreciated, no edema noted to the lower extremities Neuro: Awake and alert Psych: Behavior is normal, Mood is normal, Patient is cooperative and pleasant Vital Signs: 11:38 BP 160 / 100; Pulse 92; Resp 18; Temp 99.3; Pulse Ox 99% ; Weight 69.85 kg; Height 5 nj1 ft. 1 in. ; Pain 10/10; 14:57 BP 148 / 78; Pulse 84; Resp 18; Pulse Ox 99% ; ko1 11:38 Body Mass Index 29.10 (69.85 kg, 154.94 cm) [facility] 11:38 Pain Scale: Adult nj1 MDM: 11:46 Patient medically screened. [facility] 11:46 Differential diagnosis: UTI, pyelonephritis. [facility] 15:10 Data reviewed: vital signs, nurses notes. I considered the following discharge [facility] prescriptions or medication management in the emergency department Medications were administered in the Emergency Department. See MAR. Counseling: I had a detailed discussion with the patient and/or guardian regarding: the historical points, exam findings, and any diagnostic results supporting the discharge/admit diagnosis, lab results, radiology results, the need for outpatient follow up, to return to the emergency department if symptoms worsen or persist or if there are any questions or concerns that arise at home. 10/04 11:47 Order name: CBC with Diff; Complete Time: 13:01 [facility] 10/04 11:47 Order name: CMP; Complete Time: 13:12 [facility] 10/04 11:47 Order name: Lipase; Complete Time: 13:12 [facility] 10/04 11:47 Order name: Urinalysis w/ reflexes; Complete Time: 13:56 [facility] 10/04 13:57 Order name: Urine Culture [facility] 10/04 11:47 Order name: IV Saline Lock; Complete Time: 12:50 [facility] 10/04 11:47 Order name: Labs collected and sent; Complete Time: 12:50 [facility] Administered Medications: 14:57 Drug: Rocephin IV 1 grams Route: IV; Rate: calculated rate; Site: left antecubital; ko1 15:23 Follow up: Response: No adverse reaction ko1 Disposition Summary: 10/04/22 15:11 Discharge Ordered Location: Home [facility] Condition: Stable [facility] Diagnosis - UTI/ Urinary tract infection, site not specified [facility] Followup: [facility] - With: Private Physician - When: 2 - 3 days - Reason: Recheck today's complaints, Continuance of care, Re-evaluation by your physician Discharge Instructions: - Discharge Summary Sheet [facility] - Urinary Tract Infection, Adult [facility] Forms: - Medication Reconciliation Form [facility] - Thank You Letter [facility] - Antibiotic Education [facility] - Prescription Opioid Use [facility] Prescriptions: - cefpodoxime 200 mg Oral Tablet - take 1 tablet by ORAL route every 12 hours for 10 days with food; 20 tablet; [facility] Refills: 0, Product Selection Permitted Signatures: Dispatcher [employer] Shantanu Phillip PA PA jmm Oliver, Kathy, RN RN ko1 Naomie Hyman RN RN nj1
[2022-10-04 15:28] VITALS: TEMP 99.3; O2SAT 99
[2022-10-04 15:30] VITALS: BP 148/78
== END 2022-10-04 15:23 | disposition home or self-care (01) ==
LOC: ER 11:03
DX: N39.0 Urinary tract infection, site not specified (principal); I10 Essential (primary) hypertension
CPT/HCPCS: 87088; 85025; 81001; 87086; 36415; 87077; 87186; 83690; 80053; 96374; 99284; J0696

== ENCOUNTER 2023-10-28 18:55 | Emergency (ER) | payer OTHER ==
[2023-10-28] MEDS ORDERED: ONDANSETRON 4 MG/2 ML VIAL ONE (19:35)
[2023-10-28] MEDS ORDERED: MORPHINE 4 MG/ML SYR ONE (19:35)
[2023-10-28] MEDS ORDERED: NA CHLORIDE 0.9% 1,000 ML ONE (19:36)
[2023-10-28 19:55] LABS: ALT/SGPT 29 U/L (13-56); Albumin 3.8 g/dL (3.4-5.0); Albumin/Globulin Ratio 0.8 (1.1-1.8); Alkaline Phosphatase 77 U/L (45-117); Anion Gap 10.6 mEq/L (5.0-15.0); BUN Blood Urea Nitrogen 15 mg/dL (7-18); Bicarbonate 30 mEq/L (21-32); Bilirubin Total 0.8 mg/dL (0.2-1.0); Globulin 4.6 g/dL (2.3-3.5); Glomerular Filtration Rate 68 ml/min (=/>90); Glucose Level 180 mg/dL (74-106); Lipase 51 U/L (13-75); Potassium 3.6 mEq/L (3.5-5.1); Protein, Total 8.4 g/dL (6.4-8.2); Sodium Level 138 mEq/L (136-145); Troponin High Sensitivity 5.1 pg/mL (<58.9)
[2023-10-28 19:56] LABS: AST/SGOT < 10 U/L (15-37)
[2023-10-28 19:57] LABS: Absolute Eosinophils 0.1 K/uL (0-0.5); Absolute Lymphocytes (CBC) 2.4 K/uL (0.7-4.9); Absolute Monocytes 0.7 K/uL (0.1-1.3); Absolute Neutrophil 4.9 K/uL (1.8-8.0); Basophils % 0.4 % (0-1.3); Eosinophils % 1.6 % (0-4.4); Hematocrit 43.4 % (36.0-45.0); Hemoglobin 14.5 g/dL (12.0-15.0); Lymphocytes % 29.6 % (15.3-44.8); MCH 27.5 pg (27.0-35.0); MCHC 33.4 g/dL (32.0-36.0); MCV 82.2 fL (80-100); MPV 9.3 fL (7.6-11.3); Monocytes % 8.2 % (3.3-12.3); Neutrophils % 60.2 % (41.7-73.7); Platelets 202 thou/uL (152-406); RBC Red Blood Cell Count 5.29 M/uL (3.86-4.86); Red Cell Distribution Width 13.4 % (12.1-15.2)
--- NOTE | 2023-10-28 20:48 | RAD REPORT ---
EXAM DESCRIPTION: CT - Abdomen Pelvis W Contrast - 10/28/2023 8:25 pm CLINICAL HISTORY: ABD PAIN COMPARISON: No comparisons TECHNIQUE: Thin cut axial CT imaging of the abdomen and pelvis was performed following intravenous a dministration of iodinated contrast. Multiplanar reformats were generated and reviewed. All CT scans are performed using dose optimization technique as appropriate and may include automated exposure control or mA/KV adjustment according to patient size. FINDINGS: No suspicious findings in the lung bases. The liver, spleen, adrenal glands, and pancreas show no suspicious findings. Gallbladder and biliary tree are also without suspicious finding. Symmetric renal function is seen with no hydronephrosis or suspicious renal mass. Small parapelvic le ft renal cysts. No dilated bowel loops or bowel wall thickening. Appendix is unremarkable. No free air, free fluid or inflammatory stranding. No hernia, mass or bulky lymphadenopathy. The urinary bladder is without sig nificant finding. No suspicious bony findings. IMPRESSION: No acute intra-abdominal process.
[2023-10-28] MEDS ORDERED: PROMETHAZINE 25 MG TABLET ONE (21:39)
[2023-10-28] MEDS ORDERED: DIPHENOX/ATROP SULF 1 TAB PO ONE (21:39)
--- NOTE | 2023-10-28 21:39 | EDPHYS ---
Physician Documentation [facility] Name: Clarice Hall Age: 58 yrs Sex: Female : 1965 Arrival Date: 10/28/2023 Time: 18:55 Bed 5 Private MD: ED Physician Ge Patterson HPI: 10/27 19:16 This 58 yrs old Female presents to ER via Ambulatory with complaints of sp3 Nausea/Vomiting/Diarrhea. 19:16 58-year-old female with history of hypertension, diabetes who presents to the ED with sp3 4-day history of nausea, vomiting, diarrhea and crampy abdominal pain and feelings of dehydration. She denies any bad food intake or any significant abdominal surgery. No blood or mucus in her emesis or bowel movements. On review of systems, she denies fever, URI symptoms, chest pain, shortness of breath, back pain, dysuria, urinary frequency, syncope, near syncope, rash, bleeding, or any other signs or symptoms on ROS at this time.. Historical: - Allergies: 19:09 No Known Allergies; ha1 - PMHx: 19:09 Diabetes - NIDDM; Hypertension; ha1 - Immunization history:: Adult Immunizations up to date. - Infectious Disease History:: Denies. - Social history:: Smoking status: Patient denies any tobacco usage or history of. ROS: 19:17 Constitutional: Negative for fever, chills, and weight loss, Eyes: Negative for injury, sp3 pain, redness, and discharge, ENT: Negative for injury, pain, and discharge, Neck: Negative for injury, pain, and swelling, Cardiovascular: Negative for chest pain, palpitations, and edema, Respiratory: Negative for shortness of breath, cough, wheezing, and pleuritic chest pain, Back: Negative for injury and pain, MS/Extremity: Negative for injury and deformity, Skin: Negative for injury, rash, and discoloration, Neuro: Negative for headache, weakness, numbness, tingling, and seizure, Psych: Negative for depression, anxiety, suicide ideation, homicidal ideation, and hallucinations, Allergy/Immunology: Negative for hives, rash, and allergies, Endocrine: Negative for neck swelling, polydipsia, polyuria, polyphagia, and marked weight changes, Hematologic/Lymphatic: Negative for swollen nodes, abnormal bleeding, and unusual bruising, 19:17 All other systems are negative, Exam: 19:17 Constitutional: This is a well developed, well nourished patient who is awake, alert, sp3 and in no acute distress. Head/Face: Normocephalic, atraumatic. Eyes: Pupils equal round and reactive to light, extra-ocular motions intact. Lids and lashes normal. Conjunctiva and sclera are non-icteric and not injected. Cornea within normal limits. Periorbital areas with no swelling, redness, or edema. Neck: Trachea midline, no thyromegaly or masses palpated, and no cervical lymphadenopathy. Supple, full range of motion without nuchal rigidity, or vertebral point tenderness. No Meningismus. Chest/axilla: Normal chest wall appearance and motion. Nontender with no deformity. No lesions are appreciated. Cardiovascular: Regular rate and rhythm with a normal S1 and S2. No gallops, murmurs, or rubs. Normal PMI, no JVD. No pulse deficits. Respiratory: Lungs have equal breath sounds bilaterally, clear to auscultation and percussion. No rales, rhonchi or wheezes noted. No increased work of breathing, no retractions or nasal flaring. Back: No spinal tenderness. No costovertebral tenderness. Full range of motion. Skin: Warm, dry with normal turgor. Normal color with no rashes, no lesions, and no evidence of cellulitis. MS/ Extremity: Pulses equal, no cyanosis. Neurovascular intact. Full, normal range of motion. Neuro: Awake and alert, GCS 15, oriented to person, place, time, and situation. Cranial nerves II-XII grossly intact. Motor strength 5/5 in all extremities. Sensory grossly intact. Cerebellar exam normal. Normal gait. Psych: Awake, alert, with orientation to person, place and time. Behavior, mood, and affect are within normal limits. 21:33 ECG was reviewed by the Attending Physician. EKG 1930 reveals heart rate 79, sp4 otherwise normal EKG. Normal sinus rhythm. Vital Signs: 19:00 BP 141 / 89; Pulse 95; Resp 16 S; Temp 98.4(O); Pulse Ox 100% on R/A; Weight 70.76 kg; ha1 Height 5 ft. 1 in. ; Pain 10/10; 19:11 BP 111 / 77; Pulse 91; Resp 18; Pulse Ox 100% on R/A; Pain 0/10; rg5 21:40 BP 148 / 83; Pulse 88; Resp 18; Temp 97.9; Pulse Ox 98% ; Pain 0/10; rg5 19:00 Body Mass Index 29.48 (70.76 kg, 154.94 cm) ha1 19:00 Pain Scale: Adult ha1 19:11 Pain Scale: Adult rg5 21:40 Pain Scale: Adult rg5 [place] Coma Score: 19:11 Eye Response: spontaneous(4). Motor Response: obeys commands(6). Verbal Response: rg5 oriented(5). Total: 15. 21:33 Eye Response: spontaneous(4). Motor Response: obeys commands(6). Verbal Response: sp4 oriented(5). Total: 15. MDM: 19:08 Patient medically screened. sp3 19:18 Data reviewed: vital signs, nurses notes, lab test result(s), EKG, radiologic studies. sp3 ED course: 58-year-old female with gastroenteritis type symptoms of abdominal pain. Differential diagnosis includes foodborne illness, gastroenteritis, biliary pathology including cholecystitis, pancreatitis, gastritis and to a lesser degree acute coronary syndrome and/or aortic pathology. Workup will include EKG, laboratory values, CT scan of the abdomen pelvis IV contrast and supportive care with IV fluids, pain and nausea medication and general supportive care. Final disposition pending workup and patient course. Patient will be signed out to nighttime physician for final reevaluation and disposition.. 21:24 ED course: EXAM DESCRIPTION: CT - Abdomen Pelvis W Contrast - 10/28/2023 8:25 pm sp4 CLINICAL HISTORY: ABD PAIN COMPARISON: No comparisons TECHNIQUE: Thin cut axial CT imaging of the abdomen and pelvis was performed following intravenous administration of iodinated contrast. Multiplanar reformats were generated and reviewed. All CT scans are performed using dose optimization technique as appropriate and may include automated exposure control or mA/KV adjustment according to patient size. FINDINGS: No suspicious findings in the lung bases. The liver, spleen, adrenal glands, and pancreas show no suspicious findings. Gallbladder and biliary tree are also without suspicious finding. Symmetric renal function is seen with no hydronephrosis or suspicious renal mass. Small parapelvic left renal cysts. No dilated bowel loops or bowel wall thickening. Appendix is unremarkable. No free air, free fluid or inflammatory stranding. No hernia, mass or bulky lymphadenopathy. The urinary bladder is without significant finding. No suspicious bony findings. IMPRESSION: No acute intra-abdominal process. . 21:33 Differential diagnosis: Nonspecific abd pain, gastritis, pancreatitis, diverticulitis, sp4 viral gastroenteritis, gastroenteritis. Consideration of Admission/Observation Escalation of care including admission/observation considered. ED course: CT has revealed no acute intra-abdominal process. Patient feels better. She will be given p.o. Lomotil and Phenergan. Patient stable for discharge home.. Will advise clear liquid diet. Will advise as needed Bentyl Phenergan Lomotil. Will advise bedrest for 24 hours. Patient states Trulicity makes her feel sick and unwell. Will recommend switching from Trulicity to some alternative medicine for diabetes control. . 10/27 19:11 Order name: CBC with Diff; Complete Time: 20:06 sp3 10/27 19:11 Order name: CMP; Complete Time: 20:06 sp3 10/27 19:11 Order name: Lipase; Complete Time: 20:06 sp3 10/27 19:11 Order name: Troponin High Sensitivity; Complete Time: 20:06 sp3 10/27 19:11 Order name: CT Abd/Pelvis - IV Contrast Only; Complete Time: 21:20 sp3 10/27 19:11 Order name: IV Saline Lock; Complete Time: 19:27 sp3 10/27 19:11 Order name: Labs collected and sent; Complete Time: 19:27 sp3 10/27 19:11 Order name: EKG - Nurse/Tech; Complete Time: 19:39 sp3 EC:33 Rate is 79 beats/min. Rhythm is regular, Normal Sinus Rhythm. QRS [place] is Normal. [place] sp4 interval is normal. QRS interval is normal. QT interval is normal. No Q waves. T waves are Normal. No ST changes noted. Clinical impression: No evidence of ischemia. Interpreted by me. Reviewed by me. Administered Medications: 19:46 Drug: NS 0.9% IV 1000 ml IV at 1 bolus Per protocol; 1000 mL bolus Route: IV; Rate: 1 rg5 bolus; Site: right antecubital; 22:06 Follow up: IV Status: Completed infusion; IV Intake: 1000ml rg5 22:07 Follow up: IV Status: Completed infusion; IV Intake: 1000ml rg5 19:46 Drug: Ondansetron IVP 4 mg IVP once; over 2 minutes Route: IVP; Site: right antecubital;rg5 22:07 Follow up: Response: No adverse reaction rg5 19:46 Drug: morphine IVP or IV 4 mg IVP once over 4 mins Route: IVP; Infused Over: 4 mins; rg5 Site: right antecubital; 22:08 Follow up: Response: No adverse reaction rg5 21:42 Drug: Promethazine PO 25 mg PO once Route: PO; jb4 21:42 Follow up: Response: Medication administered at discharge. jb4 22:06 Follow up: Response: No adverse reaction rg5 21:42 Drug: Diphenoxylate-Atropine PO 2 tabs PO once Route: PO; jb4 21:42 Follow up: Response: Medication administered at discharge. jb4 22:06 Follow up: Response: No adverse reaction rg5 Disposition Summary: 10/28/23 21:38 Discharge Ordered Notes: Location: Home sp4 Problem: new sp4 Symptoms: have improved sp4 Condition: Stable sp4 Diagnosis - Vomiting without nausea sp4 - Acute gastroenteritis, nonbloody diarrhea sp4 Followup: sp4 - With: Private Physician - When: 7 - 10 days - Reason: Recheck today's complaints Discharge Instructions: - Discharge Summary Sheet sp4 - Clear Liquid Diet, Adult, [id number] sp4 Forms: - Work release form em1 - Patient Portal Instructions sp4 Prescriptions: - Lomotil 2.5-0.025 mg Oral tablet - take 1 tablet ORAL route every 6 hours As needed PRN diarrhea; 30 tablet; sp4 Refills: 0, Product Selection Permitted - promethazine 25 mg Oral tablet - take 1 tablet ORAL route every 6 hours As needed PRN nausea; 30 tablet; sp4 Refills: 0, Product Selection Permitted - dicyclomine 20 mg Oral tablet - take 1 tablet ORAL route every 6 hours PRN abdominal pain; 30 tablet; Refills: sp4 0, Product Selection Permitted Signatures: Dispatcher [employer] Ever Prasad RN RN jb4 Jeronimo Michel MD MD sp3 Megha Kwok RN RN tricia1 Ge Patterson MD MD sp4 Avendaño, Beni, RN RN rg5 Corrections: (The following items were deleted from the chart) 19:12 19:12 CBC+H.LAB.BRZ ordered. EDMS EDMS 19:12 19:12 COMPREHENSIVE METABOLIC PANEL+C.LAB.BRZ ordered. EDMS EDMS 19:12 19:12 LIPASE+C.LAB.BRZ ordered. EDMS EDMS 19:12 19:12 Urinalysis+U.LAB.BRZ ordered. EDMS EDMS 19:12 19:12 Troponin High Sensitivity+C.LAB.BRZ ordered. EDMS EDMS 19:12 19:12 Abdomen Pelvis W Con+CT.RAD.BRZ ordered. EDMS EDMS
--- NOTE | 2023-10-28 21:39 | ER ---
Nurse's Notes [facility] Name: Clarice Hall Age: 58 yrs Sex: Female : 1965 Arrival Date: 10/28/2023 Time: 18:55 Bed 5 Private MD: Diagnosis: Vomiting without nausea;Acute gastroenteritis, nonbloody diarrhea Presentation: 10/27 19:00 Chief complaint: Patient states: I have been having nausea, vomiting, diarrhea, and ha1 left upper quadrant pain since Thursday. 19:00 Method Of Arrival: Ambulatory ha1 19:00 Coronavirus screen: Vaccine status: Patient reports receiving the 2nd dose of the covid ha1 vaccine. Ebola Screen: No symptoms or risks identified at this time. Initial Sepsis Screen: Does the patient meet any 2 criteria? No. Patient's initial sepsis screen is negative. Does the patient have a suspected source of infection? No. Patient's initial sepsis screen is negative. Risk Assessment: Do you want to hurt yourself or someone else? Patient reports no desire to harm self or others. Onset of symptoms was October 28, 2023. 19:00 Acuity: KASIA 3 ha1 Triage Assessment: 19:00 General: Appears uncomfortable, Behavior is calm, cooperative. Pain: Complains of pain ha1 in left upper quadrant Pain currently is 10 out of 10 on a pain scale. Neuro: Level of Consciousness is awake, alert, obeys commands, Oriented to person, place, time, situation. Respiratory: Airway is patent Respiratory effort is even, unlabored, Respiratory pattern is regular, symmetrical. GI: Reports upper abdominal pain, diarrhea, nausea, vomiting. Historical: - Allergies: 19: No Known Allergies; ha1 - PMHx: 19:09 Diabetes - NIDDM; Hypertension; ha1 - Immunization history:: Adult Immunizations up to date. - Infectious Disease History:: Denies. - Social history:: Smoking status: Patient denies any tobacco usage or history of. Screenin:11 [facility] ED Fall Risk Assessment (Adult) History of falling in the last 3 months, rg5 including since admission No falls in past 3 months (0 pts) Confusion or Disorientation No (0 pts) Intoxicated or Sedated No (0 pts) Impaired Gait No (0 pts) Mobility Assist Device Used No (0 pt) Altered Elimination No (0 pt) Score/Fall Risk Level 0 - 2 = Low Risk. Abuse screen: Denies threats or abuse. Nutritional screening: Has had N/V for 3 or more days. Tuberculosis screening: No symptoms or risk factors identified. Assessment: 19:11 General: Appears in no apparent distress. comfortable, Behavior is calm, cooperative, rg5 appropriate for age. Pain: Denies pain. Neuro: Level of Consciousness is awake, alert, obeys commands, Oriented to person, place, time. Cardiovascular: Capillary refill < 3 seconds. Respiratory: Airway is patent. GI: Abdomen is round non-distended, Abd is soft and non tender X 4 quads. Reports diarrhea. : No signs and/or symptoms were reported regarding the genitourinary system. EENT: No signs and/or symptoms were reported regarding the EENT system. Derm: No signs and/or symptoms reported regarding the dermatologic system. Skin is intact, Skin is dry, Skin is normal, Skin temperature is warm. Musculoskeletal: Range of motion: intact in all extremities. 21:24 Reassessment: Patient and/or family updated on plan of care and expected duration. Pain rg5 level reassessed. Patient is alert, oriented x 3, equal unlabored respirations, skin warm/dry/pink. Vital Signs: 19:00 BP 141 / 89; Pulse 95; Resp 16 S; Temp 98.4(O); Pulse Ox 100% on R/A; Weight 70.76 kg; ha1 Height 5 ft. 1 in. ; Pain 10/10; 19:11 BP 111 / 77; Pulse 91; Resp 18; Pulse Ox 100% on R/A; Pain 0/10; rg5 21:40 BP 148 / 83; Pulse 88; Resp 18; Temp 97.9; Pulse Ox 98% ; Pain 0/10; rg5 19:00 Body Mass Index 29.48 (70.76 kg, 154.94 cm) ha1 19:00 Pain Scale: Adult ha1 19:11 Pain Scale: Adult rg5 21:40 Pain Scale: Adult rg5 [place] Coma Score: 19:11 Eye Response: spontaneous(4). Motor Response: obeys commands(6). Verbal Response: rg5 oriented(5). Total: 15. 21:33 Eye Response: spontaneous(4). Motor Response: obeys commands(6). Verbal Response: sp4 oriented(5). Total: 15. ED Course: 18:59 Patient arrived in ED. ra3 19:00 Jeronimo Michel MD is Attending Physician. sp3 19:06 Beni Avendaño, ANTONIA is Primary Nurse. rg5 19:09 Triage completed. ha1 19:11 Patient has correct armband on for positive identification. Placed in gown. Bed in low rg5 position. Call light in reach. Side rails up X 1. 19:27 CBC with Diff Sent. vk 19:27 CMP Sent. vk 19:27 Lipase Sent. vk 20:06 Attending Physician role handed off by Jeronimo Michel MD sp4 20:06 Ge Patterson MD is Attending Physician. sp4 20:26 CT Abd/Pelvis - IV Contrast Only In Process Unspecified. EDMS 21:24 Inserted saline lock: 20 gauge in right antecubital area, using aseptic technique. rg5 21:40 Arm band placed on right wrist. Patient placed on oxygen, on monitor worker, on pulse rg5 oximetry. EKG completed in triage. Results shown to MD. 22:04 Provided Education on: post er care done. rg5 22:04 No provider procedures requiring assistance completed. IV discontinued. rg5 Administered Medications: 19:46 Drug: NS 0.9% IV 1000 ml IV at 1 bolus Per protocol; 1000 mL bolus Route: IV; Rate: 1 rg5 bolus; Site: right antecubital; 22:06 Follow up: IV Status: Completed infusion; IV Intake: 1000ml rg5 22:07 Follow up: IV Status: Completed infusion; IV Intake: 1000ml rg5 19:46 Drug: Ondansetron IVP 4 mg IVP once; over 2 minutes Route: IVP; Site: right antecubital;rg5 22:07 Follow up: Response: No adverse reaction rg5 19:46 Drug: morphine IVP or IV 4 mg IVP once over 4 mins Route: IVP; Infused Over: 4 mins; rg5 Site: right antecubital; 22:08 Follow up: Response: No adverse reaction rg5 21:42 Drug: Promethazine PO 25 mg PO once Route: PO; jb4 21:42 Follow up: Response: Medication administered at discharge. jb4 22:06 Follow up: Response: No adverse reaction rg5 21:42 Drug: Diphenoxylate-Atropine PO 2 tabs PO once Route: PO; jb4 21:42 Follow up: Response: Medication administered at discharge. jb4 22:06 Follow up: Response: No adverse reaction rg5 Medication: 21:24 VIS not applicable for this client. rg5 Intake: 22:06 IV: 1000ml; Total: 1000ml. rg5 22:07 IV: 1000ml; Total: 2000ml. rg5 Outcome: 21:38 Discharge ordered by MD. desai 22:04 Discharged to home rg5 22:04 Condition: stable 22:04 Discharge instructions given to patient, Instructed on discharge instructions, follow up and referral plans. Prescriptions given X 3, 22:08 Patient left the ED. rg5 Signatures: Dispatcher [employer] EDMS Ever Trejo, ANTONIA RN jb4 Jeronimo Michel MD MD sp3 Megha Kwok RN RN tricia1 Ge Patterson MD MD sp4 Shantelle Chase Vivian vk Gallardo, Rommel, RN RN rg5
[2023-10-28 22:25] VITALS: BP 148/83; TEMP 97.9; O2SAT 98
== END 2023-10-28 22:08 | disposition home or self-care (01) ==
LOC: ER 18:55
DX: K52.9 Noninfective gastroenteritis and colitis, unspecified (principal)
CPT/HCPCS: 85025; 36415; 84484; 83690; 80053; 74177; Q9967; Q0169; J2405; J7030; 93005